=== PATIENT | male | born 1975 ===

== ENCOUNTER 2021-09-19 08:57 | Outpatient (REF) | payer OTHER, SELFPAY ==
--- NOTE | 2021-09-20 12:30 | MHC.AU.AHA ---
Adult Audiological Evaluation Date of Visit: 09/19/21 Reason for Appointment: Long-standing history of hearing loss. Patient reports his hearing loss was diagnosed in his 20s. There is extensive family history of hearing loss on the paternal side, including one family member who has cochlear implants. Patient reports that he typically relies on lip reading to help with speech understanding. His most recent hearing aids were a pair of Oticon BTEs, which are no longer working. He has been using loaner instruments from [facility] until he can get his own pair of replacement hearing aids. He is working with [employer]. Ear History: Ear Deformity: None Reported Recent Ear Drainage: None Reported Recent Ear Pain: None Reported Family History of Hearing Loss?: Yes: Paternal Side Recent Ear Infections: None Reported Ear Infections in Childhood: Both Ears History of Ear Wax Buildup: Both Ears Previous Ear Surgery: None Reported Bothersome Tinnitus/Ringing/Noises in Ears: Both Ears Ear used on the phone: Both Ears Blocked/Full Sensation in Ear(s): None Reported History of occupational noise exposure?: No History: No Medical History: Medical History: Hypertension, Blood Clot in 07/2021 Otoscopy: Right Ear: Wet partially-occluding cerumen- removed prior to testing Left Ear: Wet non-occluding cerumen Tympanometry: Tympanometry performed due to: To assess integrity of the middle ear system Right Ear: Normal Middle Ear System (Type A) Left Ear: Normal Middle Ear System (Type A) Hearing Evaluation: Transducer(s) Used: Circumaural Headphones Method: Conventional Audiometry Stimuli Used: Pure Tones Right Ear: Description of Hearing: Moderately-severe to profound sensorineural hearing loss Left Ear: Description of Hearing: Moderately-severe to profound sensorineural hearing loss Speech Recognition Threshold (SRT): Method Used: Recorded Lists Stimuli Used: Spondee Words Right Ear: Attempted, but patient was unable to repeat any words from the recording Left Ear: Attempted, but patient was unable to repeat any words from the recording Word Discrimination: Method: Monitored Live Voice Word Lists Used: W-22 Right Ear: Without visual cues: 0% at 100 dBHL, With visual cues (lip reading while listening): 64% at 100 dBHL Left Ear: Without visual cues: 0% at 100 dBHL, With visual cues (lip reading while listening): 52% at 100 dBHL Most Comfortable Level (MCL): Right Ear: 100 dBHL Left Ear: 100 dBHL Recommendations: Audiological re-evaluation in one year. See Hearing Aid Evaluation report for more information. Patient inquired if he would quality for cochlear implants. Audiologically, he is likely a candidate, though a full cochlear implant evaluation would be needed to make that determination. He would like to continue with hearings aids for now. He plans to talk to his family member who has cochlear implants to get their perspective on the experience and help him decide if he is ready for that step. If interested in the future, a referral to Dr. Denny at [facility] would be recommended. Cerumen removal performed in the right ear prior to today's testing using a lighted disposable curette. Minor bleeding noted afterwards. Use of wax softening drops, such as EarWaxMD or Debrox, is recommended to prevent cerumen occlusions in the future. Diagnosis: Primary Diagnosis: H90.3 Bilateral Sensorineural Hearing Loss Signature: Provider: Stuart Estevez, CCC-A
--- NOTE | 2021-09-20 13:00 | MHC.AU.HAS ---
Hearing Aid Evaluation Date of Visit: 09/19/21 Historical Information: Description of Hearing: Moderately-severe to profound sensorineural hearing loss bilaterally Summary: Patient was seen for audiological evaluation (see separate report for details). He is working with [facility] to obtain new hearing aids. Patient reports that he previously relied on a streamer worn around his neck to use his phone. 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 He was interested in hearing aids that were compatible with his Android phone so he would not have to wear a streamer anymore. Patient also expressed interest in rechargeable hearing aids; however, there are currently no rechargeable hearing aids available that would fit his degree of hearing loss. Hearing Aid Prescription: Based on the individual?s shared listening needs, communication environments, dexterity, desire for connectivity, and personal preferences, the following prescription for amplification has been made: Right ear: Director Customer: Phonak Model: Marilou P70-UP Battery Size: 675 Color: P5 Type of Mold: Microsonic Clear M2000 Skeleton-Style Left ear: Director Customer: Phonak Model: Marilou P70-UP Battery Size: 675 Color: P5 Type of Mold: Microsonic Clear M2000 Skeleton-Style Action Taken/Action Needed: Earmold Impressions Taken Hendricks quote will be sent to [facility]. Upon approval, the materials will be ordered. Patient will be contacted to schedule a hearing aid fitting when all materials have arrived. Primary Diagnosis: H90.3 Bilateral Sensorineural Hearing Loss Signature: Provider: Stuart Estevez, ALEXIS-A
--- NOTE | 2021-09-20 13:01 | MHC.AU.MED ---
Medical Clearance for Hearing Instrumentation Date: 09/20/21 Patient Name: EDER MOLINA Date of : 1975 Referring Provider: Freddy Holland MD We have seen your patient on 09/19/21 and have determined that they are a candidate for amplification (See accompanying report). Specifically, they would benefit from: Hearing aid use in both ears There is a statute that addresses Medical Evaluation Requirements prior to fitting a patient with a hearing aid. According to [place] statute [facility] CMR:6.03(1), (a) General. Except as provided in 265 CMR 6.03(1)(b), a certified hearing instrument dispenser shall not sell a hearing aid unless the prospective user has presented to the certified hearing instrument dispenser a written statement signed by a licensed physician that states that the patient's hearing loss has been medically evaluated and the patient may be considered a candidate for a hearing aid. The medical evaluation must have taken place within the preceding six months. Please note: Due to the [place] Statute referenced above, we cannot accept a signature other than that of a licensed physician. TITLE CLOSER and PA signatures cannot be accepted. I am in agreement with the above recommendation. There is no medical contraindication for hearing instrumentation. Physician Signature Date Physician Name (Printed)
== END 2021-09-19 08:58 | disposition home or self-care (01) ==
LOC: HO.SH 08:57
PROVIDERS: Visit Provider Internal Medicine
DX: H90.3 Sensorineural hearing loss, bilateral (principal)
CPT/HCPCS: 92557; 92567

== ENCOUNTER 2021-12-18 11:30 | Outpatient (REF) | payer SELFPAY ==
--- NOTE | 2021-12-18 13:10 | MHC.AU.HFU ---
Hearing Instrument Follow-Up- Binaural Date of Visit: 12/18/21 Right Ear: Meat Service Team Member: Phonak Model: Marilou P70-UP Serial Number: [id number] Repair Warranty: 01/22/2025 Loss and Damage Warranty: 01/22/2025 Service Plan: 11/15/2022 Battery Size: 675 Color: P5 Type of Mold: Microsonic Clear M2000 Half Shell Dispensed By: [facility] Date of Fittin11/15/2021 Left Ear: Meat Service Team Member: Phonak Model: Marilou P70-UP Serial Number: [id number] Repair Warranty: 01/22/2025 Loss and Damage Warranty: 01/22/2025 Battery Size: 675 Color: P5 Type of Mold: Microsonic Clear M2000 Half Shell Dispensed By: [facility] Date of Fittin11/15/2021 Follow-Up Summary: Richard was seen today for a hearing aid repair and 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 Visual inspection of the right device revealed the tone hook was broken and the tubing was missing. Re-tubed the right side to ensure Richard had a set of back up earmolds as needed. Fit new silicone earmolds bilaterally. Re-ran feedback test and turned off SoundRecover 2 as the patient was complaining that communication partners often sounded as if they had a lisp. Patient reported improved sound quality and overall comfortable fit of the devices. Additionally, patient requested a letter be mailed to his house to give to his employer, stating that he needs a captioned telephone for work use, due to his hearing impairment. Recommendations: Hearing instrument maintenance in 6 months, or sooner if needed. Diagnosis Code(s): H90.3 Bilateral Sensorineural Hearing Loss Signature: Student/Clinical Fellow: Yes: Anna Vazquez B.A., Stuart Unit Control Clerk I have reviewed/agreed with student/fellow documentation: Yes Provider: Stuart Morrison, [facility]
== END 2021-12-18 11:31 | disposition home or self-care (01) ==
LOC: HO.HAP 11:30
PROVIDERS: Visit Provider Internal Medicine
DX: Z13.89 Encounter for screening for other disorder (principal)

== ENCOUNTER 2022-01-25 09:29 | Outpatient (REF) | payer SELFPAY | END 2022-01-25 09:30 | disposition home or self-care (01) | LOC: HO.HAP 09:29 | PROVIDERS: Visit Provider Internal Medicine | DX: Z13.89 Encounter for screening for other disorder (principal) ==

== ENCOUNTER 2022-07-12 13:19 | Outpatient (REF) | payer SELFPAY ==
--- NOTE | 2022-07-12 14:39 | MHC.AU.HFU ---
Hearing Instrument Follow-Up- Binaural Date of Visit: 07/12/22 Right Ear: Brian Westida P70-UP SN: [id number] Color: Champagne Repair Warranty: 01/22/2025 Loss and Damage Warranty: 01/22/2025 Service Plan: 11/15/2022 Battery Size: 675 Type of Mold: Microsonic Clear M2000 Canal shell Dispensed By: [facility] Date of Fittin11/15/2021 Left Ear: Brian Westida P70-UP SN: [id number] Color: Champagne Repair Warranty: 01/22/2025 Loss and Damage Warranty: 01/22/2025 Battery Size: 675 Type of Mold: Microsonic Clear M2000 Canal shell Dispensed By: [facility] Date of Fittin11/15/2021 Follow-Up Summary: Richard reported feedback from his left hearing aid. Tubing extremely hard and pulling on mold. Left tone hook cracked. Hearing aids and ear molds were cleaned, microphones were vacuumed, and tubing was replaced. Also replaced the tone hook on the left hearing aid. A listening check demonstrated that the hearing aids are in good working order. Otoscopy clear, bilaterally. Richard noticed immediate improvement in comfort with new tubing. No feedback noted in office. Recommendations: Tubing change every 3-6 months. Richard scheduled an appointment on 11/06/2022 for a tubing change before his service agreement expires. Diagnosis Code(s): Primary Diagnosis: H90.3 Bilateral Sensorineural Hearing Loss Signature: Provider: Agus Vu, [facility]
== END 2022-07-12 13:20 | disposition home or self-care (01) ==
LOC: HO.HAP 13:19
PROVIDERS: Visit Provider Internal Medicine
DX: Z13.89 Encounter for screening for other disorder (principal)

== ENCOUNTER 2022-11-04 09:29 | Outpatient (REF) | payer SELFPAY ==
--- NOTE | 2022-11-04 10:47 | MHC.AU.HFU ---
Hearing Instrument Follow-Up- Binaural Date of Visit: 11/04/22 Right Ear: Scenic Arts Supervisor: Phonak Marilou P70-UP SN: [id number] Color: Champagne Repair Warranty: 01/22/2025 Loss and Damage Warranty: 01/22/2025 Service Plan: 11/15/2022 Battery Size: 675 Color: P5 Tubing: Tube Lock Type of Mold: Microsonic Clear M2000 Canal shell Dispensed By: [facility] Date of Fittin11/15/2021 Left Ear: Scenic Arts Supervisor: Phonak Marilou P70-UP SN: [id number] Color: Champagne Repair Warranty: 01/22/2025 Loss and Damage Warranty: 01/22/2025 Service Plan: 11/15/2022 Battery Size: 675 Color: P5 Tubing: Tube Lock Type of Mold: Microsonic Clear M2000 Canal shell Dispensed By: [facility] Date of Fittin11/15/2021 Follow-Up Summary: Patient needs tubing changed and reports the left aid is softer compared to the right. Cleaned the aids. microphones, contacts and changed tubing. Both earhooks were loose and replaced both. Increased the overall gain of the left aid 2 steps and then the right one click with patient reporting more balanced volume between the aids. Patient's service contract is expiring 11/15/2022. Provided the list of service fees. Since patient requires regular tubing changes, advised the extended 3 year services agreement for $499. Patient will consider. Also advise audiologic re-evaluation and patient will contact PCP to have order faxed. Recommendations: Hearing instrument follow-up or maintenance as needed. Please contact our clinic with any questions or concerns. Diagnosis Code(s):Primary Diagnosis: H90.3 Bilateral Sensorineural Hearing Loss Signature: Provider: Agus Thrasher, [facility]
== END 2022-11-04 09:30 | disposition home or self-care (01) ==
LOC: HO.HAP 09:29
PROVIDERS: Visit Provider Internal Medicine
DX: Z13.89 Encounter for screening for other disorder (principal)

== ENCOUNTER 2022-11-15 12:16 | Outpatient (REF) | payer SELFPAY | END 2022-11-15 12:17 | disposition home or self-care (01) | LOC: HO.HAP 12:16 | PROVIDERS: Visit Provider Internal Medicine | DX: Z46.1 Encounter for fitting and adjustment of hearing aid (principal); H90.3 Sensorineural hearing loss, bilateral | CPT/HCPCS: V5299 ==

== ENCOUNTER 2023-01-14 11:36 | Outpatient (REF) | payer SELFPAY ==
--- NOTE | 2023-01-14 13:03 | MHC.AU.HFU ---
Hearing Instrument Follow-Up- Binaural Date of Visit: 01/14/23 Right Ear: Phonak Marilou P70-UP SN: [id number] Color: Champagne Repair Warranty: 01/22/2025 Loss and Damage Warranty: 01/22/2025 Service Plan: 11/15/2025 Battery Size: 675 Type of Mold: Microsonic Clear M2000 Canal shell Dispensed By: [facility] Date of Fittin11/15/2021 Left Ear: Phonak Marilou P70-UP SN: [id number] Color: Champagne Repair Warranty: 01/22/2025 Loss and Damage Warranty: 01/22/2025 Service Plan: 11/15/2025 Battery Size: 675 Type of Mold: Microsonic Clear M2000 Canal shell Dispensed By: [facility] Date of Fittin11/15/2021 Follow-Up Summary: Richard Darden is here today for a tubing change. Right and left ear mold tubing have hardened and he notes some feedback due to this. Otoscopy reveals clear ear canals bilaterally. Visual inspection of the hearing aids confirms hardened tubing and some moisture in the tone hooks. I re-tubed the ear molds and replaced the tone hooks bilaterally. Listening check confirms clear sound. I measured the tubing to the patient's ear. Good fit, no feedback. Richard reported good sound bilaterally. He will contact our clinic for hearing aid maintenance when he notes the ear mold tubing has hardened or if concerns arise. Diagnosis Code(s): Primary Diagnosis: H90.3 Bilateral Sensorineural Hearing Loss Signature: Provider: Stuart Macias, [facility]
== END 2023-01-14 11:37 | disposition home or self-care (01) ==
LOC: HO.HAP 11:36
PROVIDERS: Visit Provider Internal Medicine
DX: Z13.89 Encounter for screening for other disorder (principal)

== ENCOUNTER 2023-04-25 14:08 | Outpatient (REF) | payer SELFPAY | END 2023-04-25 14:09 | disposition home or self-care (01) | LOC: HO.HAP 14:08 | PROVIDERS: Visit Provider Internal Medicine | DX: Z13.89 Encounter for screening for other disorder (principal) ==

== ENCOUNTER 2023-12-12 14:59 | Outpatient (REF) | payer SELFPAY | END 2023-12-12 15:00 | disposition home or self-care (01) | LOC: HO.HAP 14:59 | PROVIDERS: Visit Provider Internal Medicine | DX: Z13.89 Encounter for screening for other disorder (principal) ==

== ENCOUNTER 2024-01-23 14:58 | Outpatient (REF) | payer SELFPAY | END 2024-01-23 14:59 | disposition home or self-care (01) | LOC: HO.HAP 14:58 | PROVIDERS: Visit Provider Internal Medicine | DX: Z13.89 Encounter for screening for other disorder (principal) ==

== ENCOUNTER 2024-06-04 14:21 | Outpatient (REF) | payer SELFPAY | END 2024-06-04 14:22 | disposition home or self-care (01) | LOC: HO.HAP 14:21 | PROVIDERS: Visit Provider Internal Medicine | DX: Z46.1 Encounter for fitting and adjustment of hearing aid (principal); H90.3 Sensorineural hearing loss, bilateral | CPT/HCPCS: V5264 ==

== ENCOUNTER 2024-10-15 13:22 | Outpatient (REF) | payer SELFPAY ==
--- OUTSIDE RECORDS SUMMARY | 2024-10-15 13:52 | XMS_ITS | Clinical Summary ---
Author Organization [facility] Address [address] [place] [address] Phone Care Team Providers Care Scenario Writer Name Role Phone Freddy Holland MD Primary Care Provider + [phone] Allergies No known active allergies Medications lisinopril 40 MG tablet Take 40 mg by mouth 1 (one) time each day Active hydroCHLOROthia zide 25 MG tablet Take 25 mg by mouth 1 (one) time each day Active allopurinol (ZYLOPRIM) 100 MG tablet Take 100 mg by mouth in the morning and 100 mg in the evening. Active pantoprazole (PROTONIX) 40 MG EC tablet Take 40 mg by mouth 1 (one) time each day before breakfast Do not crush, chew, or split. Active metoprolol succinate XL (TOPROL XL) 25 MG 24 hr tablet Take 25 mg by mouth 1 (one) time each day Do not crush or chew. Active apixaban (Eliquis) 2.5 MG tablet Take 2.5 mg by mouth in the morning and 2.5 mg in the evening. Active Loratadine (Claritin) 10 MG capsule Take 1 tablet by mouth 1 (one) time each day Active fluticasone (FLONASE) 50 MCG/ACT nasal spray Administer 1 spray into each nostril 1 (one) time each day Active Elastic Bandages & Supports (JOBST FOR MEN KNEE HIGH/LG) misc Active Cholecalciferol (Vitamin D) 25 MCG (1000 UT) tablet Take by mouth Active metFORMIN (FORTAMET) 500 MG 24 hr tablet Take 500 mg by mouth 1 (one) time each day with dinner Do not crush, chew, or split. Active zolpidem (Ambien) 10 MG tablet Take 10 mg by mouth at night if needed for sleep Active amLODIPine (NORVASC) 10 MG tablet Take 1 tablet (10 mg total) by mouth 1 (one) time each day 90 tablet 3 4 Active Zoloft 25 MG tablet Take 25 mg by mouth 1 (one) time each day 4 Active Active Problems Problem Noted Date Diagnosed Date Deep venous thrombosis 10/19/2023 Hypertension 10/19/2023 Adrenal adenoma <Unspecified side> 10/19/2023 Family History Medical History Relation Comments Cancer Father Relation Status Comments Father Social History Tobacco Use Types Packs/Day Years Used Date Smoking Tobacco: Never Smokeless Tobacco: Never Tobacco Cessation:Counseling Given: Not Answered Alcohol Use Standard Drinks/Week Comments Yes 0 (1 standard drink = 0.6 oz pur e alcohol) Sex and Gender Information Value Date Recorded Sex Assigned at Not on file Legal Sex Male 10:10 AM EDT Gender Identity Not on file Sexual Orientation Not on file Last Filed Vital Signs Vital Sign Reading Time Taken Comments Blood Pressure 143/93 03/18/2024 8:08 AM EDT Pulse 80 03/18/2024 8:08 AM EDT Temperature - - Respiratory Rate - - Oxygen Saturation 98% 03/18/2024 8:08 AM EDT Inhaled Oxygen Concentration - - Weight 142 kg (314 lb) 03/18/2024 8:08 AM EDT Height 190.5 cm (6' 3 ) 03/18/2024 8:08 AM EDT Body Mass Index 39.25 03/18/2024 8:08 AM EDT Plan of Treatment Upcoming Encounters Date Type Department Care Team (Late st Contact Info) Description 03/17/2025 8:20 AM EDT Office Visit [facility] [address] [address] Jw Pearson MD [address] [address] Health Maintenance Due Date Last Done Comments Pneumococcal Vaccine: Pediat rics (0 to 5 Years) and At-Risk Patients (6 to 64 Years) (1 of 2 - PCV) 1983 Hepatitis B Vaccine (1 of 3 - 19+ 3-dose series) 04/19 Influenza Vaccine (#1) 2024 Insurance [facility] Care Teams Scenario Writer Relationship Specialty Start Date End Date Freddy Holland MD [address] [place] [address] PCP - General Internal Medicine 06/18/23
--- OUTSIDE RECORDS SUMMARY | 2024-10-15 13:52 | XMS_ITS | Clinical Summary ---
Author Organization [facility] Address [address] [id number] Care Team Providers Care Oil Recovery Operator Name Role Phone Freddy Holland MD Primary Care Provider + [phone] Allergies No known active allergies Medications Medication Sig Dispensed Refills Start Date End Date Status allopurinol (ZYLOPRIM) 100 MG tablet Take 200 mg by mouth daily. 0 07/29/2021 Active Eliquis 5 MG TABS tablet Take 5 mg by mouth 2 (two) times a day. 0 09/18/2021 Active citalopram (CeleXA) 40 MG tablet Take 40 mg by mouth every night at bedtime. 0 09/18/2021 Active desvenlafaxine (PRISTIQ) 50 MG 24 hr tablet 0 10/10/2021 Active lisinopril (PRINIVIL,ZESTRIL) tablet 40 mg Take 40 mg by mouth daily. 0 09/21/2021 Active pantoprazole (PROTONIX) 40 MG tablet Take 40 mg by mouth daily. 0 07/25/2021 Active topiramate (TOPAMAX) 200 MG tablet Take 200 mg by mouth every night at bedtime. 0 08/16/2021 Active Active Problems Problem Noted Date Diagnosed Date Acute deep vein thrombosis ( DVT) of tibial vein of left lower extremity 10/16/2021 Family History Medical History Relation Name Comments Cancer Father Cancer Maternal Grandmother Cancer Paternal Grandfather Relation Name Status Comments Father Maternal Grandmother Paternal Grandfather Social History Tobacco Use Types Packs/Day Years Used Date Smoking Tobacco: Never Smokeless Tobacco: Never Alcohol Use Standard Drinks/Week Comments Never 0 (1 standard drink = 0.6 oz pur e alcohol) Sex and Gender Information Value Date Recorded Sex Assigned at Not on file Gender Identity Not on file Sexual Orientation Not on file Last Filed Vital Signs Vital Sign Reading Time Taken Comments Blood Pressure 152/96 10/16/2021 11:44 AM EST Pulse 92 10/16/2021 11:44 AM EST Temperature 36.2 ??C (97.2 ??F) 10/16/2021 1 1:44 AM EST Respiratory Rate - - Oxygen Saturation 96% 10/16/2021 11: 44 AM EST Inhaled Oxygen Concentration - - Weight 156.6 kg (345 lb 3.2 oz) 022 11:44 AM EST Height 190.5 cm (6' 3 ) 10/16/2021 11:4 4 AM EST Body Mass Index 43.15 10/16/2021 11:44 AM EST Plan of Treatment Health Maintenance Due Date Last Done Comments Hepatitis B Vaccines (1 of 3 - 3-dose series) 1975 Hepatitis C Screening 1975 COVID-19 Vaccine (#1) 1975 Depression Screening 1989 Preventative Health Evaluation 1995 DTap / Tdap / Td (1 - Tdap) 1996 Colon Cancer Screening (Colonoscopy) 2022 Influenza Vaccine (#1) 2024 Pneumococcal Vaccine Aged Out No long er eligible based on patient's age to complete this topic RSV Ped < 20 months Aged Out No longe r eligible based on patient's age to complete this topic Insurance Payer Benefit Plan / Group Subscriber ID Effective Dates Phone Address [facility] [id number] [address] [place] [address] HMO Care Teams Oil Recovery Operator Relationship Specialty Start Date End Date Freddy Holland MD PCP - General Internal Medicine 11/3/17
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
--- OUTSIDE RECORDS SUMMARY | 2024-10-15 13:52 | XMS_ITS | Data Portability ---
Author Organization [facility], [address] Address [address] [place] [address] Care Team Providers Care Search Strategist Name Role Phone RAINA NIEVES Adult Basic Education Manager [phone] Assessment Encounter Date Assessment Date Assessment LastModified by Organization Details LastModified Time 08/29/2024 08/29/2024 Patient was evaluated by the Physician Production Corrugator using AV technology. This type of exam does not replace a need for an in-person evaluation if symptoms worsen or do not improve after 24-48 hours. Not available 08/29/2024 10:47:21 Plan of Treatment Reminders Order Date Submit Date Provider Last Modified By Organization Details Last Modified Time Details Appointments None recorded. Lab None recorded. Referral None recorded. Procedures None recorded. Surgeries None recorded. Imaging XR, foot, 3 or more view 2023 024 [facility], [address] [place] [address], [address], 4 18:10:31 Medication Orders clotrimazol e-betametha sone 1 %-0.05 % topical cream 2023 024 [id number], [address] [place], [address], 4 10:34:06 amoxicillin 875 mg-potassiu m clavulanate 125 mg tablet 2023 024 [id number], [address] [place], [address], 10:33:59 Patient TargetsNo targets recorded. Patient Instructions Encounter Date Encounter Id Patient Instructions Last Modified By Organization Details Last Modified Time 10/04/2023 [id number] hives: care instructions quinton Not available 10/04/2023 16:47:26 - Daily cleansin g of intertriginous skin with a mild cleanser followed by drying of affected area with a astronomy department chair on a cool setting - Aeration of affected area when feasible - Daily application of drying powders - Use of absorbent material or clothing, such as cotton or macedo wool, to separate skin in folds [facility] Not available 10/04/2023 16:47:42 01/14/2024 [id number] learning about rice (rest, ice, compression, and elevation) [email or web address] Not available 01/14/2024 17:16:41 Recommend rest, icing intermittently Physical Therapy and follow up with Podiatry. [email or web address] Not available 01/14/2024 17:46:17 05/07/2024 [id number] Acute Sinusitis: Care Instructions Not available 05/07/2024 16:53:15 08/29/2024 [id number] upper respirator y infection (cold): care instructions Not available 08/29/2024 10:50:54 Reason for Referral None Reported. Results Created Date Observation Date Name Description Value Unit Range Abnormal Flag Note LastModifiedBy Organization Detail LastModifiedTime 01/14/20 24 01/14/2024 XR, foot, 3 or more view No observ ation record ed. [email or web address] [facility] [address] [place], [address], 01/14/2024 19:27:55 Result Notes None recorded. Problems Name Problem SNOMED Code Status Onset Date Resolution Date Notes Provider Name and Address Organization Details Recorded Time Hypertensive disorder 00387628 Active Suellen cheung PA - [facility] 16:12:30 Diabetes mellitus 13924523 Active Suellen cheung PA - [facility] 16:12:38 Anxiety 94850211 Active Suellen cheung PA - [facility] 4 16:12:47 Problem Notes None recorded. Procedures Surgical History Date Name Laterality Status Provider Name and Address Organization Details Recorded Time 4 Virtual Visit completed Cinthia BECKWITH - [facility] 08/29/2024 10:32:31 Imaging Results Imaging Date Name Status LastModified by Liset ation Details LastModified Time 01/14/2024 XR, foot, 3 or more view completed [email or web address] [facility] [address] [facility] [place], [address], 01/14/2024 19:27:55 Procedure Notes None recorded. Medical Equipment None Reported. Allergies No known drug allergies Medications Name Sig Start Date Stop Date Status Note LastModified by Organization Details LastModified Time clotrimazol e-betametha sone 1 %-0.05 % topical cream APPLY TO THE AFFECTED AND SURROUNDI NG AREAS OF SKIN BY TOPICAL ROUTE 2 TIMES PER DAY IN THE MORNING AND EVENING FOR 2 WEEKS 08/29 completed Not Available Not Available Not Available amoxicillin 875 mg-potassiu m clavulanate 125 mg tablet Take 1 tablet every 12 hours by oral route for 10 days. 08/29 completed Not Available Not Available Not Available Zoloft active Not Available Not Availa ble Not Available Eliquis 2.5 mg tablet Take 1 tablet twice a day by oral route. active Not Available Not Available No t Available Vitals Date Recorded Body height Body mass index (BMI) Body weight Oxygen saturation Oxygen saturation in Arterial blood by Pulse oximetry Heart rate Respiratory rate Body temperature Systolic blood pressure Diastolic blood pressure Provider Name and Address Organization Details Last Updated DateTime 4 190.5 cm 38.7 kg/m2 422608. 63 g 98 % 98 % 78 /min 18 /min 98.8 [degF] 167 mm[Hg] 88 mm[Hg] Suellen BECKWITH - [facility] 4 16:15:47 Date Recorded Body height Body mass index (BMI) Body weight Oxygen saturation Oxygen saturation in Arterial blood by Pulse oximetry Heart rate Respiratory rate Body temperature Systolic blood pressure Diastolic blood pressure Provider Name and Address Organization Details Last Updated DateTime 4 190.5 cm 39.4 kg/m2 464469. 6 g 99 % 99 % 84 /min 18 /min 97.5 [degF] 130 mm[Hg] 86 mm[Hg] Roberta Wilkins PA - [facility] 4 17:10:43 Date Recorded Body height Body mass index (BMI) Body weight Pain severity - 0-10 verbal numeric rating [Score] - Reported Oxygen saturation Oxygen saturation in Arterial blood by Pulse oximetry Heart rate Respiratory rate Body temperature Systolic blood pressure Diastolic blood pressure Provider Name and Address Organization Details Last Updated DateTime 4 190.5 cm 39.4 kg/m2 435267. 6 g 3 98 % 98 % 105 /min 18 /min 98.7 [degF] 142 mm[Hg] 98 mm[Hg] Seullen Espinoza PA - [facility] 4 16:49:32 Date Recorded Body height Body mass index (BMI) Body weight Provider Name and Address Organization Details Last Updated DateTime 08/29/2024 190.5 cm 39.4 kg/m2 929711.6 g Cinthia Ale PA - [facility] 08/29/2024 10:33:52 Social History Question Answer Notes LastModified by Organizat ion Details LastModified Time Tobacco Smoking Status Never Smoker Suellen cheung PA - [facility] 10/04/2023 16:13:33 What Is Your Level Of Alcohol Consumption? None [email or web address] Information not available 10/04/2023 Are You Currently Employed? No Information not available 08/29/2024 Have You Had A Flu Shot This Season? Yes [email or web address] Information not available 10/04/2023 What Is Your Water Source? City Information not available 08/29/2024 What Is Your Heat Source? Electric Information not available 08/29/2024 Have You Had Direct Contact, Or Contact During Intimacy, With Monkeypox Rash, Scabs, Or Body Fluids From A Person With Monkeypox? No [email or web address] Information not available 01/14/2024 What Was The Date Of Your Most Recent Tobacco Screening? 05/07/2024 [email or web address] Information not available 05/07/2024 What Is Your Relationship Status? Information not available 08/29/2024 Are You Passively Exposed To Smoke? No Information no t available 08/29/2024 Do You Use Any Illicit Or Recreational Drugs? No Information not available 10/04/2023 Have You Recently Traveled Abroad? No [email or web address] Information not available 10/04/2023 Sex: Unknown Functional Status None recorded. Mental Status None recorded. Family History Nothing Reported. Medical History No medical history recorded. Past Encounters Encounter ID Performer Location Encounter Start Date Encounter Closed Date Diagnosis/Indication Diagnosis SNOMED-CT Code Diagnosis ICD10 Code Diagnosis Note [id number] [address] [facility], [place] [address] 07/17/2021 08:03:29 07/17/2021 09:03:28 [id number] [address] [place] [address] 10/25/2016 08:10:10 10/25/2016 09:09:58 [id number] [address] [place] [address] 11/04/2016 14:20:19 11/04/2016 15:47:57 [id number] [address] [place] [address] 11/13/2016 14:19:38 11/13/2016 16:09:06 [id number] [address] [place] [address] 12/29/2017 08:18:27 12/29/2017 09:25:12 [id number] [address] [facility], [place] [address] 12/23/2018 08:17:50 12/23/2018 08:56:59 [id number] [address] [facility] [place] [address] 11/29/2018 16:36:13 11/29/2018 17:14:28 [id number] [address] [place] [address] 06/30/2018 08:21:01 06/30/2018 10:27:37 [id number] Sha Tapia, EDU [address] [facility] [address] [facility] [place] [id number] 10/04/2023 15:58:09 10/04/2023 16:49:55 Candidiasis of skin 24249134 B37.2 What are ringworm, athlete's foot, and jock itch?These are all skin infections caused by a fungus. These types of fungal infections are also called tinea. Some people call these fungal infections ringworm. This is because they often cause a ring-shape d, red, itchy rash on the skin. But a ring-shape d rash is not always there. Depending on where the infection is, it can look different: ? People with athlete's foot might instead have moist, raw skin between their toes, or flaking skin on the bottoms of their feet.? People with jock itch often just have a rash on their groin. It usually starts in the fold where the thigh meets the groin area.? Sometimes , especially in children, the fungus can infect the scalp. On the scalp, the infection can look like a bald spot or a round flaky patch of skin. How did I get a fungal infection? You can catch fungal infections through skin-to-sk in contact with a person who is infected. You can also catch them from an infected dog or cat. You can also get the infections from places where the fungus might be, such as:? A shower stall? A locker room floor? The area near a pool If you have a fungal infection on 1 part of your body, you can also spread it to other parts. For instance, a fungal infection on your feet could spread to your groin. How are fungal infections treated? e treatment for a fungal infection depends on which body part is affected:? If you have a fungal infection on your scalp, you must take pills to kill the fungus. Treatment for scalp infections usually lasts 1 to 3 months.? If you have a fungal infection on your feet, groin, or another body part, most of the time, you will not need pills. Instead, you can use a special gel, cream, lotion, or powder to kill the fungus. Treatment with these products lasts 2 to 4 weeks.? If you have a fungal infection on your groin and on your feet, you must treat both infections at the same time. If you don't, the infection on your feet can spread to your groin again. What problems should I watch for?If you are being treated for a fungal infection, call your doctor or nurse for advice if:? Your fungal infection spreads.? You have any of the following symptoms:?Fever of 100.4? ? ?F (38? ? ?C) or higher?Chills?Swelling, redness, or warmth around the infected area?Pain when touching the area? Your fungal infection doesn't go away after treatment. How do I keep from getting a fungal infection again?If someone in your home has had a fungal infection on their scalp:? Get rid of any [place], brushes, barrettes, or other hair products that could have the fungus on them.? Make sure that a doctor or nurse checks everyone in the house for a fungal infection on the scalp. The doctor or nurse might also suggest that everyone else in the house use an antifungal shampoo for a few weeks.? If the fungal infection might have come from a pet, have the pet checked by a vet. Some other general tips to prevent fungal infections :? Do not share unwashed clothes, sports gear, or towels with other people.? Always wear slippers or sandals when at the gym, pool, or other public areas. This includes public showers.? Change your socks and underwear at least once a day.? Keep your skin clean and dry. Always dry yourself well after swimming or showering. [id number] TANG SALAZAR [address] [facility] [address] [place] [address] 01/14/2024 17:01:01 01/14/2024 17:51:10 Pain in right foot 3812392111 83501 M79.671 Right Achi lles tendinitis 5576767649 71630 M76.61 Calcaneal spur 22857583 M77.31 [id number] TANG Mcguire [address] [facility] [address] [facility] [place] [address] 05/07/2024 16:40:23 05/07/2024 16:54:17 Acute sinusitis 59045858 J01.90 Based on your presentati on and exam, you are being diagnosed with Sinusitis. Rhinosinus itis is most often viral and will resolve on its own in 7-10 days. Symptoms that last longer than 2 weeks an antibiotic could be considered . Based on your presentati on, an antibiotic was written. The following are my recommenda tions to help your symptoms and to allow your condition to improve: 1. Drink plenty of fluids while you are ill- stay hydrated 2. Rest - don't overexert yourself - this includes sports and any gym routines. 3. I suggest taking an antihistam ine - like Claritin, Zyrtec, or Benedryl 4. If you take OTC cold medication I would recommend Nessa-Selze r Cold/Cough . 5. Mucinex with a lot of water is ok - if you are having trouble clearing your nasal passages of mucous. However, if you start to cough then discontinu e - this can increase coughing due to a watery post nasal drip. 6. Steroid Nasal Bunola like Flonase or Nasonex is recommende d. Since an antibiotic was prescribed you need to complete the full course - this is important so you don't develop any antibiotic resistance to future infections . I advise taking a Probiotic like Florastor since you are on an antibiotic - this will help you re-coloniz e your body with the good bacteria. Typically, it will take 6 months for you to restore your normal body abbey after an antibiotic . Don't hesitate to be seen again if you develop: 1. Fever > 100.5 2. Worsening Headache 3. Stiff Neck 4. Worsening Cough or Shortness of breath 5. Visual Changes. The antibiotic should start to work in 4-5 days. You may not notice immediate response. Thank you for using [employer] today, please feel free to contact our office if you have any questions or concerns. [id number] TANG Mcguire [address] [place] [address] 08/29/2024 10:31:10 08/29/2024 10:51:43 Upper respiratory infection 47981728 J06.9 Patient presented with symptoms of upper respirator y infection. Advised to drink plenty of fluids, run a cool-mist humidifier in room at night, gargle salt water for sore throat, and get plenty of rest. Patient should avoid over-exert ion and reduce exposure to irritants such as smoke, cold, dry air, and dust.Treat ment currently involves symptomati c relief. Nasal sprays like nasonex and flonase (or generic) as well as neti pot to help clear sinuses Patient may take acetaminop hen or ibuprofen as directed to reduce fever and body aches.Anti histamine and decongesta nt usage was discussed and recommenda tions made.Jose nt understood these instructio ns and will follow up in the office in 10 days to 2 weeks if symptoms not improving. ER if any shortness of breath/ector st pain or worsening. Thank you for using [facility] today, please feel free to contact our office if you have any questions or concerns. Health Concerns Section Related Observation LastModified by Organization Detai ls LastModified Time None Recorded Concern Status LastModified by Organization Details LastModified Time None Recorded Advance Directives Directive None Recorded Payers Encounter Date Sequence Insurance Name Policy Number Policy Chavis Covered Member ID Chavis Member ID Guarantor Name 07/17/2021 1 [facility] [id number] 5 Richard Husseint [id number] Richard Darden 10/04/2023 1 [facility] [id number] 5 Richard Adelso [id number] Richard Adelso 01/14/2024 1 [facility] [id number] 5 Richard Adelso [id number] Richard Adelso 05/07/2024 1 [facility] [id number] 5 Richard Adelso [id number] Richard Adelso 08/29/2024 1 [facility] [id number] 5 Richard Adelso [id number] Richard Darden Notes Date Note Type Note Provider Name and Address Organization Details Recorded Time 4 text/html UC Rash/Skin LesionReported bypatient.source of patient informationInformation obtained from patient; Patient arrived at Urgent Care ambulatory; 48 year old male comes in with rash in his groin area x 4 days. Location:abdomen; groin; genitalia; thighs Quality:itchy;red;spreading Severity:moderate Duration:4 days Context:other exposure; no new detergent or skin product; no recent change in medication; no exposure to hair dye; no expsoure to new clothes/jewelry; no recent travel; no recent illness; no pets/animals in home; not affiliated with chemicals/pesticides Alleviating Factors:nothing gives relief Associated Symptoms:no fever; no fatigue Treatment History:oral antifungals with no improvement Sha Tapia NP [address] [place], [address], PA [employer] [facility] 10/04/2023 16:49:58 4 text/html Foot/Ankle UCReported bypatient.Notes:48 y.o male pt presents with intermittent rigth heel pain that started a few weeks ago. Pt denies any specific injury. He has a slight elevated area to his heel. He denies any recent trauma or injury. TANG SALAZAR [address] [place], [address], PA [employer] [facility] 01/14/2024 19:03:41 4 text/html 49 y/o male here with R sided facial pain for 3 days, now with upper teeth pain. Has happened in the past when he has a sinus infection TANG Mcguire [address] [place], [address], PA [employer] [facility] 05/07/2024 16:54:33 4 text/html Verified the Patient's Name and at the start of visit.[employer] Technology was used and functioning properly.Patient (and Guardian) - verbally understands limitations of a medical exam using A/V Technology - understands alternative treatment would be to visit an on-site medical facility.The patient did confirm they are physically located in the state that I hold a valid medical license. 49 y/o male for virtual visit for cough, congestion for 10 days. Was treated for bronchitis last week, prescribed albuterol, nasal spray, benzonatate caps. Having some SOB and chest tightness that improves with albuterol. Not taking anything OTC.No fevers, chills, body aches. TANG Mcguire [address] [place], [address], PA - [facility] 08/29/2024 10:53:19
--- OUTSIDE RECORDS SUMMARY | 2024-10-15 13:53 | XMS_ITS | Encounter Summary ---
Author Organization [facility] [place] [address] Care Team Providers Care Internet Network Specialist Name Role Phone Freddy Holland MD Primary Care Provider [phone] Reason for Referral * Hospital - Outpatient (Routine) - Closed Specialty Diagnoses / Procedures Referred By José Manuel jackson Referred To Contact Gastroenterology Diagnoses Colon cancer screening Procedures COLONOSCOPY Anesthesia - MAC; [facility] END[facility]COPY Janusz Pate MD [address] [address] [facility] Endoscopy [address] [place] [address] Referral ID Status Reason Start Date Expiration Date Visits Re quested Visits Authorized [id number] Closed 10/07/2024 12/06/2024 1 1 Reason for Visit * Auth/Cert (Routine) Specialty Diagnoses / Procedures Referred By José Manuel jackson Referred To Contact Diagnoses Encounter for screening for malignant neoplasm of colon Procedures COLONOSCOPY [facility] [place] [address] [facility] Endoscopy [address] [place] [address] Referral ID Status Reason Start Date Expiration Date Visits Re quested Visits Authorized [id number] 1 1 Encounter Details Date Type Department Care Team (Latest Contact Info) Description 10/07/2024 11:17 AM EST - 10/07/2024 11:59 PM EST Hospital Encounter [facility] Endoscopy [address] [place] [address] Janusz Pate MD 229 [facility] [address] [place] [address] Parrish Morris, JESÚS 114 [facility] [address] [place] [address] Colon cancer screening Discharge Disposition: Home or Self Care Social History Tobacco Use Types Packs/Day Years Used Date Smoking Tobacco: Never Smokeless Tobacco: Never Tobacco Cessation:Counseling Given: Not Answered Alcohol Use Standard Drinks/Week Comments Not Currently [...] on file documented as of this encounter Last Filed Vital Signs Vital Sign Reading Time Taken Comments Blood Pressure 127/89 10/07/2024 1:32 PM EST Pulse 94 10/07/2024 1:32 PM EST Temperature 35.9 ??C (96.7 ??F) 10/07/2024 12:[address] Respiratory Rate 16 10/07/2024 1:32 PM EST Oxygen Saturation 96% 10/07/2024 1:32 PM EST Inhaled Oxygen Concentration - - Weight 143 kg (315 lb) 10/07/2024 12:49 PM EST Height 190.5 cm (6' 3 ) 10/07/2024 12:49 PM EST Body Mass Index 39.37 10/07/2024 12:49 PM EST documented in this encounter Discharge Instructions * Attachments The following attachments cannot be sent through Care Everywhere. * Colon Polyps (Turkish) documented in this encounter Medications at Time of Discharge Medication Sig Dispensed Refills Start Date End Date allopurinoL (ZYLOPRIM) 100 mg tablet Take 2 tablets (200 mg total) by mouth 1 (one) time each day. amLODIPine (NORVASC) 10 mg tablet Take 1 tablet (10 mg total) by mouth 1 (one) time each day. Eliquis 2.5 mg tablet Take 1 tablet (2.5 mg total) by mouth 2 (two) times a day. sertraline (ZOLOFT) 100 mg tablet Take 2 tablets (200 mg total) by mouth. at bedtime 10/02/2024 zolpidem (AMBIEN) 10 mg tablet Take 1 tablet (10 mg total) by mouth at bedtime as needed. at bedtime documented as of this encounter Discharge Disposition Disposition Code Departure Means Destination Home or Self Care documented in this encounter Progress Notes * Mariann Ohara RN - 10/07/2024 1:29 PM EST Problem: Cognitive:Periop Procedure - Minor Goal: Knowledge of disease or condition will improve Outcome: Adequate for Discharge Problem: Sensory:Periop Procedure - Minor Goal: Demonstrates/reports adequate pain control Outcome: Adequate for Discharge Pt meets criteria for d/c * Jody Pearl RN - 10/07/2024 12:15 PM EST Problem: Cognitive:Periop Procedure - Minor Goal: Knowledge of disease or condition will improve Outcome: Progressing Problem: Sensory:Periop Procedure - Minor Goal: Demonstrates/reports adequate pain control Outcome: Progressing PT VERBALIZES UNDERSTANDING OF D/C INSTRUCTIONS CALL VICENTE @ BEDSIDE FALL RISK REVIEWED documented in this encounter H&P Notes * Janusz Pate MD - 10/07/2024 12:15 PM EST Pre-Op Diagnosis: Screening Proposed Procedure: colon Performing Surgeon/MD/Endoscopist: Janusz Pate MD Medical/History: Past Medical History: Diagnosis Date Anxiety and depression DX:Anxiety and depression DVT (deep venous thrombosis) ([facility]) DX:DVT (deep venous thrombosis) ([facility]) [place] DX:[place]) Obesity DX:Obesity HARLEEN (obstructive sleep apnea) DX:HARLEEN (obstructive sleep apnea) Restrictive lung disease DX:Restrictive lung disease Past Surgical History: Procedure Laterality Date CHOLECYSTECTOMY PROCEDURE: HISTORICAL CHOLECYSTECTOMY OTHER SURGICAL HISTORY PROCEDURE: ESOPHAGEAL MASS BIOPSY SPCMN PATHOLOGY EXAM OTHER SURGICAL HISTORY PROCEDURE: HISTORY OTHER; COMMENT: Surgical intervention for scoliosis Medications/Allergies: Prior to Admission medications Medication Sig Start Date End Date Taking? Authorizing Provider allopurinoL (ZYLOPRIM) 100 mg tablet Take 2 tablets (200 mg total) by mouth 1 (one) time each day.Yes Historical Provider, amLODIPine (NORVASC) 10 mg tablet Take 1 tablet (10 mg total) by mouth 1 (one) time each day. Yes Historical Provider, sertraline (ZOLOFT) 100 mg tablet Take 2 tablets (200 mg total) by mouth. at bedtime 10/02/24 Yes Historical Provider, zolpidem (AMBIEN) 10 mg tablet Take 1 tablet (10 mg total) by mouth at bedtime as needed. at bedtime Yes Historical Provider, Eliquis 2.5 mg tablet Take 1 tablet (2.5 mg total) by mouth 2 (two) times a day. Historical Provider, Patient Age:49 y.o. Vitals: There were no vitals filed for this visit. Physical Exam: Mental Status: Clear HEENT: WNL Heart: WNL Lungs: WNL Abdomen: WNL Extremities: WNL Neuro: WNL Labs: Imaging: Diagnosis/Plan: Colonoscopy documented in this encounter Procedure Notes * Mariann Ohara RN - 10/07/2024 1:30 PM EST Pt tolerated fluids to drink and meets discharge criteria. Mom at pt bedside documented in this encounter Plan of Treatment Not on file documented as of this encounter Procedures Procedure Name Priority Date/Time Associated Diagnosis Comments COLONOSCOPY Routine 10/07/2024 1:11 PM EST Colon cancer screening TISSUE EXAM Routine 10/07/2024 1:09 PM EST Colon cancer screening documented in this encounter Results * COLONOSCOPY Anesthesia - MAC; [facility] END[facility] (10/07/2024 1:11 PM EST) Anatomical Region Laterality Modality Endoscopy 10/07/2024 12:5 1 PM EST Impressions 10/07/2024 1:15 PM EST - One 7 mm polyp in the mid rectum, removed with a ? cold snare. Resected and retrieved. ? - The examination was otherwise normal on direct and ? retroflexion views. Recommendation: ?- Await pathology results. ? - Repeat colonoscopy in 3 years for surveillance. Narrative 10/07/2024 1:15 PM EST [facility] GI Patient Name: Richard Darden Procedure Date: 10/07/2024 12:51 PM Date of : 1975 Age: 49 Room: ROOM 16 Gender: Male Note Status: Finalized Attending MD: Janusz Pate MD, Procedure Date No Time: 10/07/2024 Procedure: ? Colonoscopy Indications: ? Colon cancer screening in patient at increased risk: ? Family history of 1st-degree relative with colon ? polyps before age 60 years, Screening in patient at ? increased risk: Family history of 1st-degree relative ? with colorectal cancer before age 60 years Providers: ? Janusz Pate MD Referring MD: ?Janusz Pate MD Medicines: ? Propofol per Anesthesia Complications: ? No immediate complications. Estimated Blood Loss: ? Estimated blood loss: none. Procedure: ? Pre-Anesthesia Assessment: ? - ASA Grade Assessment: III - A patient with severe ? systemic disease. ? After I obtained informed consent, the scope was ? passed under direct vision. Throughout the procedure, ? the patient's blood pressure, pulse, and oxygen ? saturations were monitored continuously.The ? Colonoscope was introduced through the anus and ? advanced to the cecum, identified by appendiceal ? orifice and ileocecal valve. The colonoscopy was ? performed without difficulty. The patient tolerated ? the procedure well. The quality of the bowel ? preparation was compromised but after copious ? irrigation, just adequate. Findings: ?The perianal and digital rectal examinations were ? normal. ? A 7 mm polyp was found in the mid rectum. The polyp ? was sessile. The polyp was removed with a cold snare. ? Resection and retrieval were complete. ? The exam was otherwise without abnormality on direct ? and retroflexion views. Procedure Code(s): ? --- Professional --- ? 04022, Colonoscopy, flexible; with removal of ? tumor(s), polyp(s), or other lesion(s) by snare ? technique Diagnosis Code(s): ? --- Professional --- ? Z83.71, Family history of colonic polyps ? Z80.0, Family history of malignant neoplasm of ? digestive organs ? D12.8, Benign neoplasm of rectum CPT copyright 2020 [employer]. All rights reserved. The codes documented in this report are preliminary and upon education intern review may be revised to meet current compliance requirements. Janusz Pate MD 10/07/2024 1:15:05 PM This report has been signed electronically.Janusz Pate MD Number of Addenda: 0 Note Initiated On: 10/07/2024 12:51 PM Scope In: Scope Out: ? Endoscopy Department at [facility] - [address] [place] [address], ? [place] [address] Procedure Note Janusz Pate MD - 10/07/2024 [facility] Patient Name: Richard Darden Procedure Date: 10/07/2024 12:51 PM Date of : 1975 Age: 49 Room: ROOM 16 Gender: Male Note Status: Finalized Attending MD: Janusz Pate MD, Procedure Date No Time: 10/07/2024 Procedure: Colonoscopy Indications: Colon cancer screening in patient at increasedrisk: Family history of 1st-degree relative with colon polyps before age 60 years, Screening in patient at increased risk: Family history of 1st-degreerelative with colorectal cancer before age 60 years Providers: Janusz Pate MD Referring MD: Janusz Pate MD Medicines: Propofol per Anesthesia Complications: No immediate complications. Estimated Blood Loss: Estimated blood loss: none. Procedure: Pre-Anesthesia Assessment: - ASA Grade Assessment: III - A patient with severe systemic disease. After I obtained informed consent, the scope was passed under direct vision. Throughout theprocedure, the patient's blood pressure, pulse, and oxygen saturations were monitored continuously.The Colonoscope was introduced through the anus and advanced to the cecum, identified by appendiceal orifice and ileocecal valve. The colonoscopy was performed without difficulty. The patient tolerated the procedure well. The quality of the bowel preparation was compromised but after copious irrigation, just adequate. Findings: The perianal and digital rectal examinations were normal. A 7 mm polyp was found in the mid rectum. The polyp was sessile. The polyp was removed with a coldsnare. Resection and retrieval were complete. The exam was otherwise without abnormality ondirect and retroflexion views. Procedure Code(s): --- Professional --- 88595, Colonoscopy, flexible; with removal of tumor(s), polyp(s), or other lesion(s) by snare technique Diagnosis Code(s): --- Professional --- Z83.71, Family history of colonic polyps Z80.0, Family history of malignant neoplasm of digestive organs D12.8, Benign neoplasm of rectum CPT copyright 2020 [employer]. All rights reserved. The codes documented in this report are preliminary and upon education intern reviewmay be revised to meet current compliance requirements. Janusz Pate MD 10/07/2024 1:15:05 PM This report has been signed electronically.Janusz Pate MD Number of Addenda: 0 Note Initiated On: 10/07/2024 12:51 PM Scope In: Scope Out: Endoscopy Department at [facility] - [address] [place] [id number] IMPRESSION: - One 7 mm polyp in the mid rectum, removed with a cold snare. Resected and retrieved. - The examination was otherwise normal on directand retroflexion views. Recommendation: - Await pathology results. - Repeat colonoscopy in 3 years for surveillance. Janusz Pate MD GI~PROCEDURE ORDERA BLES * Tissue exam (10/07/2024 1:09 PM EST) Final Diagnosis A. Large Intestine, Rectum, polyp x1: - Hyperplastic polyp. 10/08/2024 10:[address] [facility] Gross Description A. Large Intestine, Rectum, polyp x1: Labeled LI rectum polyp x 1 . Received in formalin are two irregular pulliam mucosal tissue fragments, each measuring approximately 0.3 cm in greatest dimension, which are wrapped in paper and submitted in toto one cassette, two pieces, multiple levels on one slide. CHARLY 10/08/2024 10:[address] [facility] Disclaimer Unless otherwise specified, all tissue is 10% NB formalin fixed and paraffin embedded. 10/08/2024 10:[address] [facility] Tissue Rectum structure / Unknown 10/07/2024 1:09 PM EST 10/07/2024 3:27 PM EST Janusz Pate MD LAB PATHOLOGY ORDER JESÚS [facility] [address] [place] [address], documented in this encounter Visit Diagnoses Diagnosis Colon cancer screening Special screening for malignant neoplasms, colon documented in this encounter Historical Medications * This list may reflect changes made after this encounter. Medication Sig Dispensed Refills Start Date End Date zolpidem (AMBIEN) 10 mg tablet Take 1 tablet (10 mg total) by mouth at bedtime as needed. at bedtime sertraline (ZOLOFT) 100 mg tablet Take 2 tablets (200 mg total) by mouth. at bedtime 10/02/2024 Eliquis 2.5 mg tablet Take 1 tablet (2.5 mg total) by mouth 2 (two) times a day. amLODIPine (NORVASC) 10 mg tablet Take 1 tablet (10 mg total) by mouth 1 (one) time each day. allopurinoL (ZYLOPRIM) 100 mg tablet Take 2 tablets (200 mg total) by mouth 1 (one) time each day. added in this encounter Orders Medications Ordered That Jesus ht Not Have Been Administered Count Last Ordered Date First Ordered Date lactated Ringer's infusion 1 10/07/2024 sodium chloride 0.9 % flush 10 mL 2 025 Discharge Count Last Ordered Date First Orde red Date DISCHARGE PATIENT 1 10/07/2024 documented in this encounter Care Teams Internet Network Specialist Relationship Specialty Start Date End Date Freddy Holland MD [address] [place] [address] PCP - General Internal Medicine 10/04/24 documented as of this encounter
--- OUTSIDE RECORDS SUMMARY | 2024-10-15 13:53 | XMS_ITS | Encounter Summary ---
Author Organization [facility] [address] [place] [phone] Care Team Providers Care Manufacturing Worker Name Role Phone Freddy Holland MD Primary Care Provider [phone] Reason for Visit * Auth/Cert (Routine) Specialty Diagnoses / Procedures Referred By José Manuel jackson Referred To Contact Diagnoses Encounter for screening for malignant neoplasm of colon Procedures COLONOSCOPY [facility] [address] [place] [phone] [facility] Endoscopy [address] [place] [address] Referral ID Status Reason Start Date Expiration Date Visits Re quested Visits Authorized [id number] 1 1 Encounter Details Date Type Department Care Team (Late st Contact Info) Description 10/07/2024 12:57 PM EST Anesthesia Event [facility] Endoscopy [address] [place] [address] Cj Krause DO [address] [place] [address] Anesthesia Record Procedure Summary Procedure Name Responsible Anesthesiologist Anesthesia Start Time Anesthesia Stop Time COLONOSCOPY Cj Krause DO 10/07/24 1257 1314 Events Date Time Event Comment 10/07/2024 1134 1257 An Start 1257 An Start Data The patient wa s reevaluated immediately before moderate or deep sedation use and before anesthesia induction. 1257 Anesthesia Ready 1257 In Room 1257 Yosef Bilateral heari ng aids Left one removed and secured with glasses 1258 Yosef Time out done 1303 Proc Start 1310 Proc Fin 1311 an stop data 1311 Transport to PACU/ICU Patien t reassessed and ready for transfer, airway stable. Patient transport to designated recovery area. {Transport to PACU/ICU:[id number]} 1311 Out of Room 1312 Handoff to RN I completed my handoff to the receiving nurse during which we: 1. Identified the patient 2. Identified the responsible provider 3. Reviewed the pertinent medical history 4. Discussed the surgical course 5. Reviewed intra-op anesthesia management and issues during anesthesia 6. Set expectations for post-procedure period 7. Allowed opportunity for questions and acknowledgement of understanding. 1314 An Stop Meds Name Total propofol (DIPRIVAN) injection 10 mg/mL 3 00 mg lidocaine PF (XYLOCAINE-MPF) local injec tion 2% 100 mg lactated Ringer's infusion 300 mL * Agents Name O2 * Blood No blood administrations on file. Lines, Drains, and Airways Type Details Placement Removal Peripheral IV Placement Date: 10/07/24; Placement Time: 1254; Catheter Size: 20 G; Orientation: Right; Location: Hand; Site Prep: Chlorhexidine; Inserted by: Simón GARCIA RN; Insertion Attempts: 1; Patient Tolerance: Tolerated well; Removal Date: 10/07/24; Removal Time: 1352 10/07/24 1254 by Jody Pearl RN 10/07/24 1352 by Mariann Ohara RN documented in this encounter Social History Tobacco Use Types Packs/Day Years [...] as of this encounter Progress Notes * Parrish Morris CRNA - 10/07/2024 1:16 PM EST Patient: Richard Darden Procedure Summary Date: 10/07/24 Room / Location: [facility] Endoscopy Anesthesia Start: 1257 Anesthesia Stop: 1314 Procedure: COLONOSCOPY Diagnosis: Colon cancer screening (Screening in patient with FH polyp 1st deg relative age < 60 yrs) (Screening in patient at increased risk/FH 1st-deg rel with colon cancer < 60 yo) Scheduled Providers: Janusz Pate MD; Parrish Morris CRNA; Cj Krause DO Responsible Provider: Cj Krause DO Anesthesia Type: MAC ASA Status: 3 Anesthesia Plan: MAC Last Vitals: Vitals Value Taken Time BP 10/07/24 1316 Temp 10/07/24 1316 Pulse 10/07/24 1316 Resp 10/07/24 1316 SpO2 10/07/24 1316 No data recorded Anesthesia Post Evaluation Patient location during evaluation: PACU Patient participation: complete - patient participated Level of consciousness: awake Pain score: 0 Pain management: adequate Airway patency: patent Anesthetic complications: no Cardiovascular status: acceptable Respiratory status: acceptable Hydration status: acceptable Nausea: No Vomiting: No There were no known notable events for this encounter. * Cj Krause DO - 10/07/2024 11:33 AM EST 49 y.o. male scheduled for Colon cancer screening [COLONOSCOPY] Ht Readings from Last 1 Encounters: 08/15/22 1.905 m (75 ) Wt Readings from Last 1 Encounters: 08/15/22 155 kg (342 lb 9.6 oz) There is no height or weight on file to calculate BMI. Past Medical History: Diagnosis Date Anxiety and depression DX:Anxiety and depression DVT (deep venous thrombosis) ([facility]) DX:DVT (deep venous thrombosis) ([facility]) [place] (hard of hearing) DX:[place] (hard of hearing) Obesity DX:Obesity HARLEEN (obstructive sleep apnea) DX:HARLEEN (obstructive sleep apnea) Restrictive lung disease DX:Restrictive lung disease Past Surgical History: Procedure Laterality Date CHOLECYSTECTOMY PROCEDURE: HISTORICAL CHOLECYSTECTOMY OTHER SURGICAL HISTORY PROCEDURE: ESOPHAGEAL MASS BIOPSY SPCMN PATHOLOGY EXAM OTHER SURGICAL HISTORY PROCEDURE: HISTORY OTHER; COMMENT: Surgical intervention for scoliosis Denies anesthesia complications Not on File No current outpatient medications on file prior to encounter. No current facility-administered medications on file prior to encounter. Current In-hospital Medications Prior to Admission medications Not on File Social History Tobacco Use Smoking status: Never Substance Use Topics Alcohol use: Not Currently Drug use: Never Is the patient a current smoker (e.g. cigarette, cigar, pip, e-cigarette, or mariajuana)? Yes [] No[] Patient previously instructed to abstain from smoking on the day of procedure? Yes [] No[] Patient smoked on the day of procedure? Yes [] No[] ASPIRE smoking VBR: [] Not interested in quitting [] Interested in quitting- referred to treatment [] Interested in quitting - treatment provided Visit Vitals Smoking Status Never LABS: No results found for: WBC , HGB , HCT , MCV , PLT No results found for: GLUCOSE , CALCIUM , NA , K , CO2 , CL , BUN , CREATININE No results found for: INR , PROTIME No results found for: PTT EKG No results found for this or any previous visit (from the past 4464 hour(s)). ECHO No results found for this or any previous visit. CATH No results found for this or any previous visit. Relevant Problems No relevant active problems Clinical information reviewed: Anesthesia Plan ASA 3 Anesthesia Plan: MAC Anesthesia Risks Discussed serious complications Induction method: intravenous Anesthetic plan and risks discussed with patient. Anesthesia Evaluation Patient summary reviewed Airway Mallampati: II Dental - normal exam Pulmonary - normal exam Cardiovascular - normal exam Neuro/Psych GI/Hepatic/Renal Endo/Other Abdominal PONV RISK SCORE: 1 There were no vitals filed for this visit. SpO2 Readings from Last 1 Encounters: No data found for SpO2 No results found for: WBC , RBC , HGB , HCT , PLT , MCV Not on File STOP BANG: No data recorded NPO Status: No data recorded documented in this encounter Plan of Treatment Not on file documented as of this encounter Visit Diagnoses Not on filedocumented in this encounter Administered Medications Inactive Administered Medications - up to 3 most recent administrations Medication Order MAR Action Action Date Dose Rate Site lactated Ringer's infusion 100 mL/hr, intravenous, Continuous, Starting on Carmen 10/07/24 at 1200 New Bag 10/07/2024 12:57 PM EST 125 mL/hr lidocaine (PF) (XYLOCAINE-MPF) 2 % injection injection, As needed, Starting on Carmen 10/07/24 at 1301, Anesthesia Intraprocedure Given 10/07/2024 1:01 PM EST 100 mg propofoL (DIPRIVAN) injection intravenous, As needed, Starting on Carmen 10/07/24 at 1301, Anesthesia Intraprocedure Given 10/07/2024 1:07 PM EST 100 mg Given 10/07/2024 1:06 PM EST 50 mg Given 10/07/2024 1:01 PM EST 150 mg documented in this encounter Care Teams Manufacturing Worker Relationship Specialty Start Date End Date Freddy Holland MD [address] [place] [address] PCP - General Internal Medicine 10/04/24 documented as of this encounter
--- OUTSIDE RECORDS SUMMARY | 2024-10-15 13:53 | XMS_ITS | Clinical Summary ---
Author Organization [facility] Address [address] [place] [address] Phone Care Team Providers Care Stove Tender Name Role Phone Freddy Holland MD Primary Care Provider Allergies No known active allergies Medications Medication Sig Dispensed Refills Start Date End Date Status allopurinoL (ZYLOPRIM) 100 mg tablet Take 2 tablets (200 mg total) by mouth 1 (one) time each day. Active amLODIPine (NORVASC) 10 mg tablet Take 1 tablet (10 mg total) by mouth 1 (one) time each day. Active Eliquis 2.5 mg tablet Take 1 tablet (2.5 mg total) by mouth 2 (two) times a day. Active sertraline (ZOLOFT) 100 mg tablet Take 2 tablets (200 mg total) by mouth. at bedtime 10/02/2024 Active zolpidem (AMBIEN) 10 mg tablet Take 1 tablet (10 mg total) by mouth at bedtime as needed. at bedtime Active Encounters Date Type Department Care Team Description 10/13/2024 Telephone Gastroenterology - 299 [facility] 299 [facility] [address] [place] [address] Lucia Logan MA Results 10/07/2024 12:57 PM EST Anesthesia Event [facility] [address] [place] [phone] Cj Krause DO 10/07/2024 11:17 AM EST - 10/07/2024 11:59 PM EST Hospital Encounter [facility] [address] [place] [phone] Janusz Pate MD Steele, Matthew G, CRNA Colon cancer screening Discharge Disposition: Home or Self Care 10/04/2024 Telephone Gastroenterology - [address] [facility] [address] [address] Janusz Pate MD 09/20/2024 Telephone Gastroenterology - 299 [facility] [address] [address] Janusz Pate MD 08/30/2024 Telephone Gastroenterology - [address] [address] Jose Armando Brink MA 08/25/2024 Telephone Gastroenterology - [address] [address] Jose Armando Brink MA 08/23/2024 Telephone Gastroenterology - [address] [address] Jose Armando Brink MA 07/27/2024 Telephone Gastroenterology - [address] [phone] Jose Armando Brink MA from Last 3 Months Surgical History Surgery Date Site/Laterality Comments CHOLECYSTECTOMY PROCEDURE: HISTORICAL CHOLECYSTECTOMY OTHER SURGICAL HISTORY PROCEDURE: ESOPHAGEAL MASS BIOPSY SPCMN PATHOLOGY EXAM OTHER SURGICAL HISTORY PROCEDURE: HISTORY OTHER; COMMENT: Surgical intervention for scoliosis Medical History Medical History Date Comments DVT (deep venous thrombosis) ([facility]) DX:DVT (deep venous thrombosis) ([facility]) Obesity DX:Obesity Anxiety and depression DX:Anxiet y and depression HARLEEN (obstructive sleep apnea) DX :HARLEEN (obstructive sleep apnea) Restrictive lung disease DX:Rest rictive lung disease SYCUAN (hard of hearing) DX:SYCUAN ([address] of hearing) Hearing loss Gout Depression Hypertension Pulmonary emboli ([facility]) Family History Relation Name Status Comments Maternal Grandmother COLON C A Social History Tobacco Use Types Packs/Day Years [...] file Not on file Not on file Obstetrics History Last Filed Vital Signs Vital Sign Reading [...] Mass Index 39.37 10/07/2024 12:49 PM EST Plan of Treatment Health Maintenance Due Date Last Done Comments Hepatitis B Vaccines (1 of 3 - 19+ 3-dose series) 1996 Cholesterol Screening (Lipid Panel) 08/16/2022 Depression Screening 08/16/2022 HIV Screening 08/16/2022 Hepatitis C Screening 08/16/2022 Social Influencers of Health Screening 08/16/2022 Hypertension/CHF/CAD Annual BMP Blood Test 08/18/2022 DTaP,Tdap,and Td Vaccines (2 - Td or Tdap) 06/03/2034 06/03/2024 Colorectal Cancer Screening: Colonoscopy 10/07/2034 10/07/2024 Influenza Vaccine Completed 06/03/2024, , 07/12/2022, Additional history exists COVID-19 Vaccine Completed 06/10/2024, 12/2021, 08/03/2021, Additional history exists HIB Vaccines Aged Out No longer eligi ble based on patient's age to complete this topic HPV Vaccines Aged Out No longer eligi ble based on patient's age to complete this topic Hepatitis A Vaccines Aged Out No long er eligible based on patient's age to complete this topic IPV Vaccines Aged Out No longer eligi ble based on patient's age to complete this topic MMR Vaccines Aged Out No longer eligi ble based on patient's age to complete this topic Meningococcal ACWY Vaccine Aged Out N o longer eligible based on patient's age to complete this topic Pneumococcal Vaccine: Pediatrics (0 to 5 Years) and At-Risk Patients (6 to 64 Years) Aged Out No longer eligible based on patient's age to complete this topic RSV Immunization Patients Under 20 months Aged Out No longer eligible based on patient's age to complete this topic Varicella Vaccines Aged Out No longer eligible based on patient's age to complete this topic Medical Devices Implanted Type Area Counselor Camp Device Identifier Shelf Expiration Date Model / Serial / Lot Implants Implants Bilateral: Spine Lumbar Procedures Procedure Name Priority Date/Time Associated Diagnosis Comments COLONOSCOPY Routine 10/07/2024 1:11 PM EST Colon cancer screening TISSUE EXAM Routine 10/07/2024 1:09 PM EST Colon cancer screening from Last 3 Months Results * COLONOSCOPY Anesthesia - MAC; [facility] (10/07/2024 1:11 PM EST) Anatomical Region [...] for surveillance. Narrative 10/07/2024 1:15 PM EST [facility] Patient Name: Richard Darden Procedure Date: [...] Procedure Code(s): ? --- Professional --- ? 15691, Colonoscopy, flexible; with removal of ? tumor(s), polyp(s), or other lesion(s) by snare ? technique Diagnosis Code(s): ? --- Professional --- ? Z83.71, Family history of colonic polyps ? Z80.0, Family history of malignant neoplasm of ? digestive organs ? D12.8, Benign neoplasm of rectum CPT copyright 2020 [employer]. All rights reserved. The codes documented in this report are preliminary and upon striker out review may be revised to meet current compliance requirements. Janusz Pate MD 10/07/2024 1:15:05 PM This report has been signed electronically.Janusz Pate MD Number of Addenda: 0 Note Initiated On: 10/07/2024 12:51 PM Scope In: Scope Out: ? Endoscopy Department at [facility] - [address] [place] [address], ? [place] [address] Procedure Note Janusz Pate MD - 10/07/2024 [facility] Patient Name: Richard Darden Procedure Date: [...] retroflexion views. Procedure Code(s): --- Professional --- 69340, Colonoscopy, flexible; with removal of tumor(s), polyp(s), or other lesion(s) by snare technique Diagnosis Code(s): --- Professional --- Z83.71, Family history of colonic polyps Z80.0, Family history of malignant neoplasm of digestive organs D12.8, Benign neoplasm of rectum CPT copyright 2020 [employer]. All rights reserved. The codes documented in this report are preliminary and upon striker out reviewmay be revised to meet current compliance requirements. Janusz Pate MD 10/07/2024 1:15:05 PM This report has been signed electronically.Janusz Pate MD Number of Addenda: 0 Note Initiated On: 10/07/2024 12:51 PM Scope In: Scope Out: Endoscopy Department at [facility] - [address] [place] [phone] IMPRESSION: - One 7 mm polyp in [...] - Hyperplastic polyp. 10/08/2024 10:32 AM EST [facility] Gross Description A. Large Intestine, Rectum, polyp x1: Labeled LI rectum polyp x 1 . Received in formalin are two irregular pulliam mucosal tissue fragments, each measuring approximately 0.3 cm in greatest dimension, which are wrapped in paper and submitted in toto one cassette, two pieces, multiple levels on one slide. CHARLY 10/08/2024 10:32 AM [facility] Disclaimer Unless otherwise specified, all tissue is 10% NB formalin fixed and paraffin embedded. 10/08/2024 10:32 AM EST [facility] Tissue Rectum structure / Unknown 10/07/2024 1:09 PM EST 10/07/2024 3:27 PM EST Janusz Pate MD LAB PATHOLOGY ORDER JESÚS [facility] [address] [place], [place] [address] [phone] from Last 3 Months Care Teams Stove Tender Relationship Specialty Start Date End Date Freddy Holland MD [address] [place] [address] PCP - General Internal Medicine 10/04/24
--- OUTSIDE RECORDS SUMMARY | 2024-10-15 13:53 | XMS_ITS | Encounter Summary ---
Author Organization [facility] Address [address] [place] [address] Care Team Providers Care Retail Department Reset Name Role Phone Freddy Holland MD Primary Care Provider + [phone] Encounter Details Date Type Department Care Team ([facility] st Contact Info) Description 10/04/2024 Telephone Gastroenterology - 299 [place] 299 [facility] [address] [place] [address] Janusz Pate MD 229 [facility] [address] [place] [address] Social History Tobacco Use Types Packs/Day Years Used Date Smoking Tobacco: Never Alcohol Use Standard Drinks/Week Comments [...] Progress Notes * Lucia Logan MA - 10/05/2024 12:06 PM EST Pt received wrong email. Received insurance card. I will call to obtain PA * Talia Matos - 10/04/2024 4:24 PM EST PT RETURNED CALL--I GAVE HIM YOUR EMAIL. -AM * Lucia Logan MA - 10/04/2024 2:07 PM EST Lmom to cb. I need a phone number to call for auth or a picture of insurance sent to my email. * Talia Matos - 10/04/2024 1:03 PM EST PT SCHED FOR COLON 10/07/24, INS CHANGED, THINKS HE MAY NEED AUTH, NEW INS PUT INTO SYSTEM documented in this encounter Plan of Treatment Not on file documented as of this encounter Visit Diagnoses Not on filedocumented in this encounter Care Teams Retail Department Reset Relationship Specialty Start Date End Date Freddy Holland MD [address] [place] [address] PCP - General Internal Medicine 10/04/24 documented as of this encounter
--- OUTSIDE RECORDS SUMMARY | 2024-10-15 13:53 | XMS_ITS | Encounter Summary ---
Author Organization [facility] Address [address] [place] [address] Care Team Providers Care Sales Management Trainee Name Role Phone Unavailable Primary Care Provider Unavailabl e Encounter Details Date Type Department Care Team ([facility] Contact Info) Description 09/20/2024 Telephone Gastroenterology - 299 [place] [address] [phone] Janusz Pate MD [address] [address] Social History Tobacco Use Types Packs/Day Years [...] Progress Notes * Lucia Logan MA - 09/20/2024 1:50 PM EST Pt is scheduled on 10/07/24. No report yet available. * Talia Matos - 09/20/2024 9:[address] Holland is requesting pt's colon/path documented in this encounter Plan of Treatment Not on file documented as of this encounter Visit Diagnoses Not on filedocumented in this encounter
--- OUTSIDE RECORDS SUMMARY | 2024-10-15 13:53 | XMS_ITS | Data Portability ---
Author Organization [facility] [facility] Address [address] [facility] [place] [address] Care Team Providers Care Environmental Department Manager Name Role Phone HOOD PAT Primary Care Provider NICOLE ANGUIANO It Corporate Recruiter [phone] Assessment Encounter Date Assessment Date Assessment LastModified by Organization Details LastModified Time 05/22/2022 05/22/2022 This is a pleasant 46-year-old male his right knee sustained a PCL injury at the time of the fall his left knee we feel based off exam as well as subjective history extended direct trauma to the anterior portion of the knee. The MRI is present for review today which demonstrates chondromalacic changes at the patella slight patella tilt and very slight patella anjana. Patient's diagnosis of the left knee is that of symptomatic patella chondromalacic changes a result of the acute trauma to the anterior portion of the knee. We discussed proceeding with hyaluronic acid injections as well as a Zilretta injection with the first NICKERSON injection. The patient would like to proceed accordingly we do feel that his weight is contributing to his slow recovery certainly not a cause of his pain but a contributing factor towards his continued discomfort as is the weakness of the extremity and his quad demonstrates clear decreased bulk compared to the contralateral side we discussed an aggressive strengthening program injection therapy we will schedule accordingly and we will see patient back for further review [id number] Not available 05/24/2022 07:23:14 Plan of Treatment Reminders Order Date Submit Date Provider Last Modified By Organization Details Last Modified Time Details Appointments None record ed. Lab None record ed. Referral None record ed. Procedures None record ed. Surgeries None record ed. Imaging None record ed. Medication Orders None record ed. Patient TargetsNo targets recorded. Patient InstructionsNo instructions recorded. Reason for Referral None Reported. Results Created Date Observation Date Name Description Value Unit Range Abnormal Flag Note LastModifiedBy Organization Detail LastModifiedTime 05/21/20 22 12/14/2021 MRI, knee, w/o contr ast No observ ation record ed. Not Available 2021 11:25:50 05/22/20 22 05/22/2022 XR, knee http:/ [email or web address] ntegra tionPr ocesso [email or web address] ?CMD=O PENSTU DY&ACC ESSION =[id number], [address], 05/23/2022 08:33:14 05/22/20 22 05/22/2022 XR, lower extre mity http:/ [email or web address]/I ntegra tionPr ocesso r.aspx ?CMD=O PENSTU DY&ACC ESSION =[id number], [address], 05/23/2022 08:33:15 Result Notes None recorded. Procedures Surgical History Date Name Laterality Status Provider Name and Address Organization Details Recorded Time 04/08/19 93 Orthopaedic Surgery completed Kathie Orellana [facility] 05/22/2022 13:51:57 [facility]/22/2022 13:52:04 Imaging Results Imaging Date Name Status LastModified by Organiz ation Details LastModified Time 12/14/2021 MRI, knee, w/o contrast completed Information not available 05/21/2022 11:25:50 05/22/2022 XR, knee completed [address], [address], 05/23/2022 08:33:14 05/22/2022 XR, lower extremity completed [address], [address], 05/23/2022 08:33:15 Procedure Notes None recorded. Medical Equipment None Reported. Allergies No known drug allergies Medications Name Sig Start Date Stop Date Status Note LastModified by Organization Details LastModified Time cyclobenzap rine 10 mg tablet TAKE 1 TABLET BY MOUTH EVERYDAY AT BEDTIME active Not Available Not Available No t Available citalopram 40 mg tablet TAKE 1 TABLET BY MOUTH AT BEDTIME active Not Available Not Available No t Available azithromyci n 250 mg tablet TAKE 2 TABLETS BY MOUTH TODAY, THEN TAKE 1 TABLET DAILY FOR 4 DAYS 05/22 completed Not Available Not Available Not Available prednisone 5 mg tablet PLEASE SEE ATTACHED FOR DETAILED DIRECTION S 05/22 completed Not Available Not Available Not Available allopurinol 100 mg tablet TAKE 2 TABLETS BY MOUTH EVERY DAY active Not Available Not Available No t Available pantoprazol e 40 mg tablet,keny yed release TAKE 1 TABLET BY MOUTH EVERY DAY active Not Available Not Available No t Available topiramate 200 mg tablet TAKE 1 TABLET BY MOUTH AT BEDTIME 05/22 completed Not Available Not Available Not Available hydrochloro thiazide 25 mg tablet TAKE 1 TABLET BY MOUTH EVERY DAY active Not Available Not Available No t Available metoprolol succinate ER 25 mg tablet,exte nded release 24 hr TAKE 1 TABLET BY MOUTH EVERY DAY active Not Available Not Available No t Available zolpidem 10 mg tablet TAKE 1 TABLET BY MOUTH EVERY DAY AT BEDTIME NEEDED active Not Available Not Available No t Available albuterol sulfate HFA 90 mcg/actuati on aerosol inhaler INHALE 2 PUFFS BY MOUTH FOUR TIMES A DAY NEEDED 05/22 completed Not Available Not Available Not Available lisinopril 40 mg tablet TAKE 1 TABLET BY MOUTH EVERY DAY active Not Available Not Available No t Available cyclobenzap rine 5 mg tablet TAKE 2 TABLETS BY MOUTH 3 TIMES A DAY 05/22 completed Not Available Not Available Not Available topiramate 50 mg tablet TAKE 1 TABLET BY MOUTH EVERY DAY 05/22 completed Not Available Not Available Not Available desvenlafax ine succinate ER 50 mg tablet,exte nded release 24 hr TAKE 1 TABLET BY MOUTH AFTER BREAKFAST active Not Available Not Available No t Available desvenlafax ine succinate ER 100 mg tablet,exte nded release 24 hr TAKE 1 TABLET BY MOUTH EVERY MORNING AFTER BREAKFAST 05/22 completed Not Available Not Available Not Available Eliquis 5 mg tablet TAKE 1 TABLET BY MOUTH TWICE A DAY active Not Available Not Available No t Available Zilretta 32 mg intra-artic ular suspension, extended release Injection 5ML into Right Knee by Intraarti cular Route 1once by clinical provider 2021 active Not Available Not Available Not Avai lable Eliquis DVT-PE Treatment 30-Day Starter 5 mg (74 tablets) in dose pack TAKE 1 TABLET BY MOUTH DIRECTED, 30-DAY STARTER PACK #74 5MG TABLETS 05/22 completed Not Available Not Available Not Available Vitals Date Recorded Body weight Body mass index (BMI) Body height Provider Name and Address Organization Details Last Updated DateTime 05/22/2022 568860.59 g 42.7 kg/m2 190.5 cm Kathie Esteban [facility] 05/22/2022 13:49:46 Social History Question Answer Notes LastModified by 5to1 ion Details LastModified Time Tobacco Smoking Status Never Smoker [facility] 05/22/2022 13:50:04 What Is Your Level Of Alcohol Consumption? None Information not available 05/22/2022 What Is Your Level Of Caffeine Consumption? Occasional Information not available 05/22/2022 Are You Currently Employed? Yes Information not available 05/22/2022 Do You Or Have You Ever Used E-cigarettes Or Vape? 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 Yes L Knee Information not available 05/22/2022 Do You Or Have You Ever Used Smokeless Tobacco? Never Used Smokeless Tobacco Information not available 05/22/2022 How Much Tobacco Do You Smoke? No Information not available 05/22/2022 What Types Of Sporting Activities Do You Participate In? None Information not available 05/22/2022 How Many Years Have You Smoked Tobacco? 0 Information not available 05/22/2022 Sex: Unknown Functional Status Question Answer Note LastModified by Organizat ion Details LastModified Time What is your exercise level? Occasional Information not available 05/22/2022 Mental Status None recorded. Family History Nothing Reported. Medical History Condition Response Blood Clots / Phlebitis Y HIV or AIDS N Heart Problems N High Blood Pressure Y Depression or Anxiety Y Irregular Heartbeat N MRSA N Emphysema / Chronic Bronchitis N Any Other Significant Medical Issues N Reaction to General/Local Anesthesia N Hepatitis / Jaundice N Weight Gain / Loss N Kidney / Bladder Infections N Diabetes N Bleeding Disorder N Hearing Loss Y Angina, Heart Failure or Attack N Night Sweats N Seizures / Epilepsy N Osteoarthritis / Rheumatoid arthritis / Other N Cancer N Stroke N Chemical Dependency / Alcoholism N Ulcer / Stomach Bleeding / Indigestion N Visual Loss or Glaucoma N Psoriasis / Skin Rash N Thyroid Disorder N Heart Disease N Asthma / Shortness of Breath / Sleep Dining Car Conductor ea (please specify) N Pulmonary Embolism N Past Encounters Encounter ID Performer Location Encounter Start Date Encounter Closed Date Diagnosis/Indication Diagnosis SNOMED-CT Code Diagnosis ICD10 Code Diagnosis Note [id number] ERIN ESPINOZA MD [place] [phone] 05/22/2022 12:22:00 05/22/2022 15:01:45 Chondromalacia of right patella [id number] M22.41 Health Concerns Section Related Observation LastModified by Organization Detai ls LastModified Time None Recorded Concern Status LastModified by Organization Details LastModified Time None Recorded Advance Directives Directive None Recorded Payers Encounter Date Sequence Insurance Name Policy Number Policy Chavis Covered Member ID Chavis Member ID Guarantor Name 05/22/2022 [facility] Richard Darden Notes Date Note Type Note Provider Name and Address Organization Details Recorded Time 05/22/2022 text/html Patient is a pleasant male presents in today with his child welfare caseworker for evaluation of bilateral knees. 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 He presents in today for a second opinion and arthroscopy was recommended for the left knee. To date in terms of treatment he has had bilateral corticosteroid injections which were given to this patient on 11/08/2021. Patient states his chief complaint on the right knee is a sense of instability while mild is present his left knee his chief complaint is pain pain is located to the anterior portion of the knee. He denies any significant left knee posterior joint pain he is slightly hard of hearing and we spoke loudly to accommodate for this he walks with out significant limping. Patient has a past medical history of a DVT and pulmonary embolism. He is currently on anticoagulant therapy. ERIN ESPINOZA MD [address] [place] [address], [phone], [facility] 06/20/2022 11:11:41
== END 2024-10-15 13:23 | disposition home or self-care (01) ==
LOC: HO.HAP 13:22
PROVIDERS: Visit Provider Internal Medicine
DX: Z13.89 Encounter for screening for other disorder (principal)

== ENCOUNTER 2024-11-04 12:55 | Outpatient (REF) | payer SELFPAY ==
--- OUTSIDE RECORDS SUMMARY | 2024-11-04 15:21 | XMS_ITS | Clinical Summary ---
Author Organization [facility] Address [address] [place] [address] Phone Care Team Providers Care Lab Courier Name Role Phone Freddy Holland MD Primary Care Provider + [phone] Allergies No known active allergies Medications lisinopril [...] Visit [facility] [address] [address] Jw Pearson MD [address] [address] Health Maintenance Due Date Last Done Comments Pneumococcal Vaccine: Pediat rics (0 to 5 Years) and At-Risk Patients (6 to 64 Years) (1 of 2 - PCV) 1983 Hepatitis B Vaccine (1 of 3 - 19+ 3-dose series) 04/19 Influenza Vaccine (#1) 2024 Insurance [facility] Care Teams Lab Courier Relationship Specialty Start Date End Date Freddy Holland MD [address] [place] [address] PCP - General Internal Medicine 06/18/23
--- OUTSIDE RECORDS SUMMARY | 2024-11-04 15:21 | XMS_ITS | Data Portability ---
Author Organization TANG Jimenez [facility], [address] Address [address] [place] [address] Care Team Providers Care Tower Hand Name Role Phone RAINA NIEVES Practice Architect [phone] Assessment Encounter Date Assessment Date Assessment LastModified by Organization Details LastModified Time 08/29/2024 08/29/2024 Patient was evaluated by the Physician Hot Iron Worker using AV technology. This type of exam [...] 3 or more view 2023 024 [facility], [address] [place] [address], [address], 4 18:10:31 Medication Orders amoxicillin 875 mg-potassiu m clavulanate 125 mg tablet 2023 024 [id number], [address] [place], [address], 4 10:33:59 clotrimazol e-betametha sone 1 %-0.05 % topical cream 2023 024 [id number], [address] [place], [address], 10:34:06 Patient TargetsNo targets recorded. Patient Instructions Encounter Date Encounter Id Patient Instructions Last Modified By Organization Details Last Modified Time 10/04/2023 [id number] hives: care instructions samm Not available 10/04/2023 16:47:26 - Daily cleansin g of intertriginous skin with a mild cleanser followed by drying of affected area with a inspector hairspring truing on a cool setting - Aeration of affected area when feasible - Daily application of drying powders - Use of absorbent material or clothing, such as cotton or macedo wool, to separate skin in folds [facility] Not available 10/04/2023 16:47:42 01/14/2024 [id number] learning about rice (rest, ice, compression, and elevation) [email or web address] Not available 01/14/2024 17:16:41 Recommend rest, icing intermittently Physical Therapy and follow up with Podiatry. [email or web address] Not available 01/14/2024 17:46:17 05/07/2024 [id number] Acute Sinusitis: Care Instructions Not available 05/07/2024 16:53:15 08/29/2024 [id number] upper respirator y infection (cold): care instructions Not available 08/29/2024 10:50:54 Reason for Referral None Reported. Results Created Date Observation Date Name Description Value Unit Range Abnormal Flag Note LastModifiedBy Organization Detail LastModifiedTime 01/14/20 24 01/14/2024 XR, foot, 3 or more view No observ ation record ed. [facility] [address] [facility], [place], [address], 01/14/2024 19:27:55 Result Notes None recorded. Problems Name Problem SNOMED Code Status Onset Date Resolution Date Notes Provider Name and Address Organization Details Recorded Time Hypertensive disorder 66290296 Active Suellen cheung PA - [facility] 4 16:12:30 Diabetes mellitus 07235543 Active Suellen cheung PA - [facility] 4 16:12:38 Anxiety 44708572 Active Suellen cheung PA - [facility] 4 16:12:47 Problem Notes None recorded. Procedures Surgical History Date Name Laterality Status Provider Name and Address Organization Details Recorded Time 4 Virtual Visit completed Cinthia BECKWITH - [facility] 08/29/2024 10:32:31 Imaging Results Imaging Date Name Status LastModified by Liset ation Details LastModified Time 01/14/2024 XR, foot, 3 or more view completed [email or web address] [facility] [address] [facility] [place], [address], 01/14/2024 19:27:55 Procedure Notes None recorded. Medical [...] Updated DateTime 4 190.5 cm 38.7 kg/m2 814673. 63 g 98 % 98 % 78 [...] Updated DateTime 4 190.5 cm 39.4 kg/m2 604242. 6 g 99 % 99 % 84 /min 18 /min 97.5 [degF] 130 mm[Hg] 86 mm[Hg] Roberta Wilkins PA - [facility] 17:10:43 Date Recorded Body height Body mass index (BMI) Body weight Pain severity - 0-10 verbal numeric rating [Score] - Reported Oxygen saturation Oxygen saturation in Arterial blood by Pulse oximetry Heart rate Respiratory rate Body temperature Systolic blood pressure Diastolic blood pressure Provider Name and Address Organization Details Last Updated DateTime 190.5 cm 39.4 kg/m2 572245. 6 g 3 98 % 98 % 105 /min 18 /min 98.7 [degF] 142 mm[Hg] 98 mm[Hg] Suellen Espinoza PA - [facility] 4 16:49:32 Date Recorded Body height Body mass index (BMI) Body weight Provider Name and Address Organization Details Last Updated DateTime 08/29/2024 190.5 cm 39.4 kg/m2 326393.6 g Cinthia Ale PA - [facility] 08/29/2024 10:33:52 Social History Question Answer Notes LastModified by Organizat ion Details LastModified Time Tobacco Smoking Status Never Smoker Seullen cheung PA - [facility] 10/04/2023 16:13:33 What Is Your Level Of Alcohol Consumption? None Information not available 10/04/2023 Are You Currently Employed? No Information not available 08/29/2024 Have You Had A Flu Shot This Season? Yes [email or web address] Information not available 10/04/2023 What Is Your Water Source? City Information not available 08/29/2024 What Is Your Heat Source? Electric Information not available 08/29/2024 Have You Had Direct Contact, Or Contact During Intimacy, With Monkeypox Rash, Scabs, Or Body Fluids From A Person With Monkeypox? No [email or web address] Information not available 01/14/2024 What Was The Date Of Your Most Recent Tobacco Screening? 05/07/2024 Information not available 05/07/2024 What Is Your Relationship Status? Information not available 08/29/2024 Are You Passively Exposed To Smoke? No Information no t available 08/29/2024 Do You Use Any Illicit Or Recreational Drugs? No [email or web address] Information not available 10/04/2023 Have You Recently Traveled Abroad? No [email or web address] Information not available 10/04/2023 Sex: Unknown Functional Status None recorded. Mental Status None recorded. Family History Nothing Reported. Medical History No medical history recorded. Past Encounters Encounter ID Performer Location Encounter Start Date Encounter Closed Date Diagnosis/Indication Diagnosis SNOMED-CT Code Diagnosis ICD10 Code Diagnosis Note [id number] [address] [facility], [place] [address] 07/17/2021 08:03:29 07/17/2021 09:03:28 [id number] [address] [facility], [place] [address] 10/25/2016 08:10:10 10/25/2016 09:09:58 [id number] [address] [place] [address] 11/04/2016 14:20:19 11/04/2016 15:47:57 [id number] [address] [facility], [place] [address] 11/13/2016 14:19:38 11/13/2016 16:09:06 [id number] [address] [facility], [place] [address] 12/29/2017 08:18:27 12/29/2017 09:25:12 [id number] [address] [facility], [place] [address] 12/23/2018 08:17:50 12/23/2018 08:56:59 [id number] [address] [facility], [place] [address] 11/29/2018 16:36:13 11/29/2018 17:14:28 [id number] [address] [place] [address] 06/30/2018 08:21:01 06/30/2018 10:27:37 [id number] Sha Tapia, EDU [address] [facility] [address] [place] [address] 10/04/2023 15:58:09 10/04/2023 16:49:55 Candidiasis of skin 00846958 B37.2 What are ringworm, athlete's foot, and [...] dry yourself well after swimming or showering. [id number] TANG SALAZAR [address] [facility] [address] [place] [address] 01/14/2024 17:01:01 01/14/2024 17:51:10 Pain in right foot 0985064779 43802 M79.671 Right Achi lles tendinitis 6152616056 27787 M76.61 Calcaneal spur 43969455 M77.31 [id number] TANG Mcguire [address] [facility] [address] [facility] [place] [address] 05/07/2024 16:40:23 05/07/2024 16:54:17 Acute sinusitis 41781911 J01.90 Based on your presentati on and [...] watery post nasal drip. 6. Steroid Nasal [place] like Flonase or Nasonex is recommende d. [...] notice immediate response. Thank you for using [employer] today, please feel free to contact our office if you have any questions or concerns. [id number] TANG Mcguire [address] [place] [address] 08/29/2024 10:31:10 08/29/2024 10:51:43 Upper respiratory infection 05834674 J06.9 Patient presented with symptoms of upper [...] pain or worsening. Thank you for using [employer] today, please feel free to contact our [...] Chavis Member ID Guarantor Name 07/17/2021 1 [facility]3435 5 Richard Husseint [id number] Richard Darden 10/04/2023 1 [facility]3435 5 Richard Adelso [id number] Richard Adelso 01/14/2024 1 [facility]3435 5 Richard Adelso [id number] Richard Adelso 05/07/2024 1 [facility]3435 5 Richard Adelso [id number] Richard Adelso 08/29/2024 1 [facility]3435 5 Richard Adelso [id number] Richard Darden Notes Date Note Type Note [...] Sha Tapia NP [address] [place], [address], PA - [facility] 10/04/2023 16:49:58 4 text/html Foot/Ankle UCReported bypatient.Notes:48 y.o male pt presents with intermittent rigth heel pain that started a few weeks ago. Pt denies any specific injury. He has a slight elevated area to his heel. He denies any recent trauma or injury. TANG SALAZAR [address] [place], [address], PA [employer] [facility] 01/14/2024 19:03:41 4 text/html 49 y/o male here with R sided facial pain for 3 days, now with upper teeth pain. Has happened in the past when he has a sinus infection TANG Mcguire [address] [place], [address], PA - [facility] 05/07/2024 16:54:33 4 text/html Verified [...] TANG Mcguire [address] [place], [address], PA - [facility] 08/29/2024 10:53:19
--- OUTSIDE RECORDS SUMMARY | 2024-11-04 15:21 | XMS_ITS | Encounter Summary ---
Author Organization [facility] Address [address] [place] [address] Care Team Providers Care Rn Security Name Role Phone Freddy Holland MD Primary Care Provider + [phone] Reason for Visit * Reason Onset Date Comments Results 10/13/2024 Encounter Details Date Type Department Care Team (Late st Contact Info) Description 10/13/2024 Telephone Gastroenterology - [address] [place] [phone] Lucia Logan MA Results Social History Tobacco [...] at Not on file Legal Sex Male 4:16 PM EST Gender Identity Not on file Sexual Orientation Not on file documented as of this encounter Progress Notes * Lucia Logan MA - 10/18/2024 2:14 PM EST Bx results below given to pt. * Lucia Logan MA - 10/13/2024 3:18 [...] on filedocumented in this encounter Care Teams Rn Security Relationship Specialty Start Date End Date Freddy Holland MD [address] [place] [address] PCP - General Internal Medicine 10/04/24 documented as of this encounter
--- OUTSIDE RECORDS SUMMARY | 2024-11-04 15:22 | XMS_ITS | Encounter Summary ---
Author Organization [facility] Address [address] [place] [address] Care Team Providers Care Floor Installation Mechanic Name Role Phone Freddy Holland MD Primary Care Provider + [phone] Encounter Details Date Type Department Care Team ([facility] st Contact Info) Description 10/04/2024 Telephone Gastroenterology - [address] [facility] [address] [place] [address] Janusz Pate MD [address] [facility] [address] [place] [address] Social History Tobacco Use Types Packs/Day Years [...] on filedocumented in this encounter Care Teams Floor Installation Mechanic Relationship Specialty Start Date End Date Freddy Holland MD [address] [place] [address] PCP - General Internal Medicine 10/04/24 documented as of this encounter
--- OUTSIDE RECORDS SUMMARY | 2024-11-04 15:22 | XMS_ITS | Clinical Summary ---
Author Organization [facility] Address [address] [place] [address] Phone Care Team Providers Care Correctional Therapy Director Name Role Phone Freddy Holland MD Primary Care Provider [phone] Allergies No known active allergies Medications allopurinoL (ZYLOPRIM) 100 mg tablet Take 2 [...] Team Description 10/13/2024 Telephone Gastroenterology - [address] [facility] [address] [place] [address] Lucia Logan MA Results 10/07/2024 12:57 PM EST Anesthesia Event [facility] [address] [place] [phone] Cj Krause DO 10/07/2024 11:17 AM EST - 10/07/2024 11:59 PM EST Hospital Encounter [facility] [address] [place] [phone] Janusz Pate MD Steele, Matthew G, CRNA Colon cancer screening Discharge Disposition: Home or Self Care 10/04/2024 Telephone Gastroenterology - [address] [facility] [address] [address] Janusz Pate MD 09/20/2024 Telephone Gastroenterology - [address] [address] Janusz Pate MD 08/30/2024 Telephone Gastroenterology - [address] [address] Jose Armando Brink MA 08/25/2024 Telephone Gastroenterology - [address] [address] Jose Armando Brink MA 08/23/2024 Telephone Gastroenterology - [address] [place] [address] Jose Armadno Brink MA from Last 3 Months Surgical History Surgery Date Site/Laterality Comments CHOLECYSTECTOMY PROCEDURE: HISTORICAL CHOLECYSTECTOMY OTHER SURGICAL HISTORY PROCEDURE: ESOPHAGEAL MASS BIOPSY [facility] PATHOLOGY EXAM OTHER SURGICAL HISTORY PROCEDURE: HISTORY OTHER; COMMENT: Surgical intervention for scoliosis Medical History Medical History Date Comments DVT (deep venous thrombosis) (CMS/HCC) DX:DVT (deep venous thrombosis) ([facility]) Obesity DX:Obesity Anxiety and depression DX:Anxiet y and depression HARLEEN (obstructive sleep apnea) DX :HARLEEN (obstructive sleep apnea) Restrictive lung disease DX:Rest rictive lung disease [place] (hard of hearing) DX:[place] ([address] of hearing) Hearing loss Gout Depression Hypertension Pulmonary emboli (CMS/HCC) Family History Relation Name Status Comments Maternal [...] on file Sexual Orientation Not on file Obstetrics History Last Filed [...] patient's age to complete this topic Meningococcal B Vacine Aged Out No lo nger eligible based on patient's age to complete [...] this topic Medical Devices Implanted Type Area Tiler'S Assistant Device Identifier Shelf Expiration Date Model / Serial / Lot Implants Implants Bilateral: Spine Lumbar Procedures Procedure Name Priority Date/Time Associated Diagnosis Comments COLONOSCOPY Routine 10/07/2024 1:11 PM EST Colon cancer screening TISSUE EXAM Routine 10/07/2024 1:09 PM EST Colon cancer screening from Last 3 Months Results * COLONOSCOPY Anesthesia - MAC; [facility] END[facility]COPY (10/07/2024 1:11 PM EST) [...] for surveillance. Narrative 10/07/2024 1:[address] [facility] Patient Name: Richard Darden Procedure [...] Procedure Code(s): ? --- Professional --- ? 27555, Colonoscopy, flexible; with removal of ? tumor(s), polyp(s), or other lesion(s) by snare ? technique Diagnosis Code(s): ? --- Professional --- ? Z83.71, Family history of colonic polyps ? Z80.0, Family history of malignant neoplasm of ? digestive organs ? D12.8, Benign neoplasm of rectum CPT copyright 2020 [employer]. All rights reserved. The codes documented in this report are preliminary and upon cardroom manager review may be revised to meet current compliance requirements. Janusz Pate MD 10/07/2024 1:15:05 PM This report has been signed electronically.Janusz Pate MD Number of Addenda: 0 Note Initiated On: 10/07/2024 12:51 PM Scope In: Scope Out: ? Endoscopy Department at [facility] - [address] [place] [address], ? [place] [address] Procedure Note Janusz Pate MD - 10/07/2024 [facility] Patient Name: Richard Darden Procedure [...] retroflexion views. Procedure Code(s): --- Professional --- 55392, Colonoscopy, flexible; with removal of tumor(s), polyp(s), or other lesion(s) by snare technique Diagnosis Code(s): --- Professional --- Z83.71, Family history of colonic polyps Z80.0, Family history of malignant neoplasm of digestive organs D12.8, Benign neoplasm of rectum CPT copyright 2020 [employer]. All rights reserved. The codes documented in this report are preliminary and upon cardroom manager reviewmay be revised to meet current compliance requirements. Janusz Pate MD 10/07/2024 1:15:05 PM This report has been signed electronically.Janusz Pate MD Number of Addenda: 0 Note Initiated On: 10/07/2024 12:51 PM Scope In: Scope Out: Endoscopy Department at [facility] - [address] [place] [address] IMPRESSION: - One 7 mm polyp in the mid rectum, removed with a cold snare. Resected and retrieved. - The examination was otherwise normal on directand retroflexion views. Recommendation: - Await pathology results. - Repeat colonoscopy in 3 years for surveillance. us Janusz Pate MD GI~PROCEDURE ORDERABLES Fin al Result * Tissue exam (10/07/2024 1:09 PM EST) Final Diagnosis A. Large Intestine, Rectum, polyp x1: - Hyperplastic polyp. 10/08/2024 10:32 AM EST [facility] Gross Description A. Large Intestine, Rectum, polyp x1: Labeled LI rectum polyp x 1 . Received in formalin are two irregular pulliam mucosal tissue fragments, each measuring approximately 0.3 cm in greatest dimension, which are wrapped in paper and submitted in toto one cassette, two pieces, multiple levels on one slide. CHARLY 10/08/2024 10:32 AM EST [facility] Disclaimer Unless otherwise specified, all tissue is 10% NB formalin fixed and paraffin embedded. 10/08/2024 10:32 AM [facility] Tissue Rectum structure / Unknown 10/07/2024 1:09 PM EST 10/07/2024 3:27 PM EST us Janusz Pate MD LAB PATHOLOGY ORDERABLES Fi nal Result [facility] [address] [place] [address], from Last 3 Months Insurance [employer] Care Teams Correctional Therapy Director Relationship Specialty Start Date End Date Freddy Holland MD [address] [place] [address] PCP - General Internal Medicine 10/04/24
--- OUTSIDE RECORDS SUMMARY | 2024-11-04 15:22 | XMS_ITS | Data Portability ---
Author Hub Preferred Language en Marital Status Never Mandaeism Affiliation Unknown Race Unknown Additional Race(s) Other Race Ethnic Group Not or Lati no Author Organization [place] [facility], [facility] Office Address [address] [facility] [place] [address] Care Team Providers Care Bone Plant Supervisor Name Role Phone BI HOOD Primary Care Provider [phone] NICOLE ANGUIANO [employer] Media Specialist Assessment Encounter Date Assessment Date Assessment LastModified [...] tionPr ocesso r.aspx ?CMD=O PENSTU DY&ACC ESSION =[id number], [address], 05/23/2022 08:33:14 05/22/20 22 05/22/2022 XR, lower extre mity http:/ [email or web address]/I ntegra tionPr ocesso r.aspx ?CMD=O PENSTU DY&ACC ESSION =[id number], [address], 05/23/2022 08:33:15 Result Notes None recorded. Procedures Surgical History Date Name Laterality Status Provider Name and Address Organization Details Recorded Time 04/08/19 93 Orthopaedic Surgery completed Kathie [facility] 05/22/2022 13:51:57 cholecystectomy completed Kathie [facility] 05/22/2022 13:52:04 Imaging Results Imaging Date Name Status LastModified by Organiz ation Details LastModified Time 12/14/2021 MRI, knee, w/o contrast completed Information not available 05/21/2022 11:25:50 05/22/2022 XR, knee completed [address], [address], 05/23/2022 08:33:14 05/22/2022 XR, lower extremity completed [address] [place], [address], 05/23/2022 08:33:15 Procedure Notes None recorded. Medical [...] Address Organization Details Last Updated DateTime 05/22/2022 690528.59 g 42.7 kg/m2 190.5 cm Kathie Orellana [facility] 05/22/2022 13:49:46 Social History Question Answer Notes LastModified by [employer] ion Details LastModified Time Tobacco Smoking Status Never Smoker Kathie cheung [facility] 05/22/2022 13:50:04 What Is Your Level Of Alcohol Consumption? None Information not available 05/22/2022 What Is Your Level Of Caffeine Consumption? Occasional Information not available 05/22/2022 Are You Currently Employed? Yes Information not available 05/22/2022 Do You Or Have You Ever Used E-cigarettes Or Vape? 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 Information not available 05/22/2022 Have You Had [...] Issues N Reaction to General/Local Anesthesia N Weight Gain / Loss N Hepatitis / Jaundice N Kidney / Bladder Infections N Diabetes N Bleeding Disorder N Hearing Loss Y Angina, Heart Failure or Attack N Night Sweats N Seizures / Epilepsy N Osteoarthritis / Rheumatoid arthritis / Other N Cancer N Stroke N Chemical Dependency / Alcoholism N Ulcer / Stomach Bleeding / Indigestion N Visual Loss or Glaucoma N Thyroid Disorder N Psoriasis / Skin Rash N Heart Disease N Pulmonary Embolism N Asthma / Shortness of Breath / Sleep Bathing Suit Maker ea (please specify) N Past Encounters Encounter ID Performer Location Encounter Start Date Encounter Closed Date Diagnosis/Indication Diagnosis SNOMED-CT Code Diagnosis ICD10 Code Diagnosis Note [id number] ERIN ESPINOZA MD [address] [address] 05/22/2022 12:22:00 05/22/2022 15:01:45 Chondromalacia of right patella [id number] 2674392 M22.41 Health Concerns Section Related Observation LastModified by Organization Detai ls LastModified Time None Recorded Concern Status LastModified by Organization Details LastModified Time None Recorded Advance Directives Directive None Recorded Payers Encounter Date Sequence Insurance Name Policy Number Policy Chavis Covered Member ID Chavis Member ID Guarantor Name 05/22/2022 [facility] Children' s Study Home Richard Darden Notes Date Note Type Note Provider Name and Address Organization Details Recorded Time 05/22/2022 text/html Patient is a pleasant male presents in today with his watch case polisher for evaluation of bilateral knees. 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 He presents in [...] currently on anticoagulant therapy. ERIN ESPINOZA MD [address] [place] [address], [phone], [facility] - [facility] 06/20/2022 11:11:41
--- OUTSIDE RECORDS SUMMARY | 2024-11-04 15:22 | XMS_ITS | Encounter Summary ---
Author Organization [facility] [place] [address] Care Team Providers Care Geotechnical Operating Engineer Name Role Phone Freddy Holland MD Primary Care Provider + [phone] Reason for Referral * Hospital - Outpatient (Routine) - Closed Specialty Diagnoses / Procedures Referred By José Manuel jackson Referred To Contact Gastroenterology Diagnoses Colon cancer screening Procedures COLONOSCOPY Anesthesia - MAC; [facility] ENDOSCOPY Janusz Pate MD [address] [address] Phone: tel: fax: [facility] Endoscopy [address] [place] [address] Phone: tel: Referral ID Status Reason Start Date Expiration Date Visits Re quested Visits Authorized [id number] Closed 10/07/2024 12/06/2024 1 1 Reason for Visit * Auth/Cert (Routine) Specialty Diagnoses / Procedures Referred By José Manuel jackson Referred To Contact Diagnoses Encounter for screening for malignant neoplasm of colon Procedures COLONOSCOPY [facility] [id number] [place] [address] [facility] [address] [place] [address] Phone: tel: Referral ID Status Reason Start Date Expiration Date Visits Re quested Visits Authorized [id number] 1 1 Encounter Details Date Type Department Care Team (Latest Contact Info) Description 10/07/2024 11:17 AM EST - 10/07/2024 11:59 PM EST Hospital Encounter [facility] Endoscopy [address] [place] [address] Janusz Pate MD 229 [facility] [address] [place] [address] Parrish Morris, JESÚS [address] [facility] [address] [place] [address] Colon cancer screening Discharge Disposition: Home or [...] sent through Care Everywhere. * Colon Polyps (Tamazight) documented in this encounter Medications at Time of Discharge allopurinoL (ZYLOPRIM) 100 mg tablet Take 2 [...] (deep venous thrombosis) ([facility]/HCC) DX:DVT (deep venous thrombosis) (HCC) [place] of hearing[place] DX:[place]hard of hearing) Obesity DX:Obesity HARLEEN (obstructive [...] (one) time each day. Yes Historical Provider, amLODIPine (NORVASC) 10 mg tablet [...] encounter Results * COLONOSCOPY Anesthesia - MAC; [facility] ENDOSCOPY (10/07/2024 1:11 PM EST) Anatomical [...] for surveillance. Narrative 10/07/2024 1:15 PM EST [facility] GI Patient Name: Richard Darden Procedure [...] Procedure Code(s): ? --- Professional --- ? 41524, Colonoscopy, flexible; with removal of ? tumor(s), polyp(s), or other lesion(s) by snare ? technique Diagnosis Code(s): ? --- Professional --- ? Z83.71, Family history of colonic polyps ? Z80.0, Family history of malignant neoplasm of ? digestive organs ? D12.8, Benign neoplasm of rectum CPT copyright 2020 [employer]. All rights reserved. The codes documented in this report are preliminary and upon wall cleaner review may be revised to meet current compliance requirements. Janusz Pate MD 10/07/2024 1:15:05 PM This report has been signed electronically.Janusz Pate MD Number of Addenda: 0 Note Initiated On: 10/07/2024 12:51 PM Scope In: Scope Out: ? Endoscopy Department at [facility] - [address] [place] [address], ? [place] [address] Procedure Note Janusz Ptae MD - 10/07/2024 [facility] GI Patient Name: Richard Darden Procedure [...] retroflexion views. Procedure Code(s): --- Professional --- 42488, Colonoscopy, flexible; with removal of tumor(s), polyp(s), or other lesion(s) by snare technique Diagnosis Code(s): --- Professional --- Z83.71, Family history of colonic polyps Z80.0, Family history of malignant neoplasm of digestive organs D12.8, Benign neoplasm of rectum CPT copyright 2020 [employer]. All rights reserved. The codes documented in this report are preliminary and upon wall cleaner reviewmay be revised to meet current compliance requirements. Janusz Pate MD 10/07/2024 1:15:05 PM This report has been signed electronically.Janusz Pate MD Number of Addenda: 0 Note Initiated On: 10/07/2024 12:51 PM Scope In: Scope Out: Endoscopy Department at [facility] - [address] [place] [phone] IMPRESSION: - One 7 mm polyp in the mid rectum, removed with a cold snare. Resected and retrieved. - The examination was otherwise normal on directand retroflexion views. Recommendation: - Await pathology results. - Repeat colonoscopy in 3 years for surveillance. Janusz Pate MD GI~PROCEDURE ORDERABLES Fin al Result * Tissue exam (10/07/2024 1:09 PM EST) Final Diagnosis A. Large Intestine, Rectum, polyp x1: - Hyperplastic polyp. 10/08/2024 10:32 AM EST [facility] Gross Description A. Large Intestine, Rectum, polyp x1: Labeled LI rectum polyp x 1 . Received in formalin are two irregular pulliam mucosal tissue fragments, each measuring approximately 0.3 cm in greatest dimension, which are wrapped in paper and submitted in toto one cassette, two pieces, multiple levels on one slide. CHARLY 10/08/2024 10:32 AM [facility] Disclaimer Unless otherwise specified, all tissue is 10% NB formalin fixed and paraffin embedded. 10/08/2024 10:32 AM [facility] Tissue Rectum structure / Unknown 10/07/2024 1:09 PM EST 10/07/2024 3:27 PM EST Janusz Pate MD LAB PATHOLOGY ORDERABLES Fi nal Result [facility] [address] [place] [address], documented in this encounter Visit Diagnoses Diagnosis Colon cancer screening Special screening for malignant neoplasms, colon documented in this encounter Historical Medications * This list may reflect changes made after this encounter. zolpidem (AMBIEN) 10 mg tablet Take 1 [...] 10/07/2024 documented in this encounter Care Teams Geotechnical Operating Engineer Relationship Specialty Start Date End Date Freddy Holland MD [address] [place] [address] PCP - General Internal Medicine 10/04/24 documented as of this encounter
--- OUTSIDE RECORDS SUMMARY | 2024-11-04 15:22 | XMS_ITS | Encounter Summary ---
Author Organization [facility] [place] [address] Care Team Providers Care Aoc Airspace Control Officer Name Role Phone Freddy Holland MD Primary Care Provider [phone] Reason for Visit * Auth/Cert (Routine) Specialty Diagnoses / Procedures Referred By José Manuel jackson Referred To Contact Diagnoses Encounter for screening for malignant neoplasm of colon Procedures COLONOSCOPY [place] [address] [facility] Endoscopy [address] [place] [address] Phone: tel: Referral ID Status Reason Start Date Expiration Date Visits Re quested Visits Authorized [id number] 1 1 Encounter Details Date Type Department Care Team (Late st Contact Info) Description 10/07/2024 12:57 PM EST Anesthesia Event [facility] Endoscopy [address] [place] [address] Cj Krause DO [address] [place] [id number] Anesthesia Record Procedure Summary Procedure Name Responsible [...] transport to designated recovery area. {Transport to PACU/ICU:[id number]} 1311 Out of Room 1312 Handoff to [...] Procedure Summary Date: 10/07/24 Room / Location: [facility] Endoscopy Anesthesia Start: 1257 Anesthesia [...] DX:Anxiety and depression DVT (deep venous thrombosis) ([facility]) DX:DVT (deep venous thrombosis) ([facility]) [place] (hard of hearing) DX:[place] (hard of hearing) Obesity DX:Obesity [place] (obstructive sleep apnea) DX:[place] (obstructive sleep apnea) [...] mg documented in this encounter Care Teams Aoc Airspace Control Officer Relationship Specialty Start Date End Date Freddy Holland MD [address] [place] [address] PCP - General Internal Medicine 10/04/24 documented as of this encounter
--- OUTSIDE RECORDS SUMMARY | 2024-11-04 15:22 | XMS_ITS | Clinical Summary ---
Author Organization [facility] Address [address] [id number] Care Team Providers Care Cycling Instructor Name Role Phone Freddy Holland MD Primary Care Provider + [phone] Allergies No known active allergies Medications Medication [...] Group Subscriber ID Effective Dates Phone Address [facility] [id number] [facility] [address] [place] [address] HMO Care Teams Cycling Instructor Relationship Specialty Start Date End Date Freddy Holland MD PCP - General Internal Medicine 11/3/17
== END 2024-11-04 12:56 | disposition home or self-care (01) ==
LOC: HO.HAP 12:55
PROVIDERS: Visit Provider Internal Medicine
DX: Z13.89 Encounter for screening for other disorder (principal)

== ENCOUNTER 2024-12-23 14:20 | Outpatient (REF) | payer SELFPAY ==
--- OUTSIDE RECORDS SUMMARY | 2024-12-23 17:20 | XMS_ITS | Clinical Summary ---
Author Organization [facility] Address [address] [phone] Care Team Providers Care Director Data Processing Name Role Phone Freddy Holland MD Primary Care Provider + [phone] Allergies No known active allergies Medications Medication [...] Group Subscriber ID Effective Dates Phone Address [facility] [id number] [facility] [address] [place] [address] HMO Care Teams Director Data Processing Relationship Specialty Start Date End Date Freddy Holland MD PCP - General Internal Medicine 11/3/17
--- OUTSIDE RECORDS SUMMARY | 2024-12-23 17:20 | XMS_ITS ---
Author Name [facility] Organization Unknown Encounters Encounter Type Encounter Reason Primary Diagnosis Location Date Ambulatory [facility], [facility]. ([facility]) 08/29/2024
--- OUTSIDE RECORDS SUMMARY | 2024-12-23 17:20 | XMS_ITS | Clinical Summary ---
Author Organization [facility] Address [address] [place] [address] Phone Care Team Providers Care Vice Provost Name Role Phone Freddy Holland MD Primary Care Provider [phone] Allergies No known active allergies Medications allopurinoL [...] 10/13/2024 Telephone Gastroenterology - [address] [facility] [address] [place] [address] Lucia Logan [place] Results 10/07/2024 12:57 PM EST Anesthesia Event [facility] Endoscopy [address] [place] [phone] Cj Krause DO 10/07/2024 11:17 AM EST - 10/07/2024 11:59 PM EST Hospital Encounter [facility] [address] [place] [address] Janusz Pate MD Steele, Matthew G, CRNA Colon cancer screening Discharge Disposition: Home or Self Care 10/04/2024 Telephone Gastroenterology - [address] [facility] [address] [place] [phone] Janusz Pate MD from Last 3 Months Surgical History Surgery Date Site/Laterality Comments CHOLECYSTECTOMY PROCEDURE: HISTORICAL CHOLECYSTECTOMY OTHER SURGICAL HISTORY PROCEDURE: ESOPHAGEAL MASS BIOPSY [facility] PATHOLOGY EXAM OTHER SURGICAL HISTORY PROCEDURE: HISTORY OTHER; COMMENT: Surgical intervention for scoliosis Medical History Medical History Date Comments DVT (deep venous thrombosis) ([facility] V24, [facility] V28) DX:DVT (deep venous thrombos is) ([facility]) Obesity DX:Obesity Anxiety and depression DX:Anxiet y and depression HARLEEN (obstructive sleep apnea) DX :[place] (obstructive sleep apnea) Restrictive lung disease DX:Rest rictive lung disease [place] (hard of hearing) DX:[place] ([address] of hearing) Hearing loss Gout Depression Hypertension Pulmonary emboli ([facility] V2 4, [facility] V28) Family History Relation Name Status Comments Maternal [...] age to complete this topic Meningococcal B Vaccine Aged Out No l onger eligible based on patient's age to complete [...] this topic Medical Devices Implanted Type Area Civil Preparedness Coordinator Device Identifier Shelf Expiration Date Model / Serial / Lot Implants Implants Bilateral: Spine Lumbar Procedures Procedure Name Priority Date/Time Associated Diagnosis Comments COLONOSCOPY Routine 10/07/2024 1:11 PM EST Colon cancer screening TISSUE EXAM Routine 10/07/2024 1:09 PM EST Colon cancer screening from Last 3 Months Results * COLONOSCOPY Anesthesia - MAC; [facility] END[facility]COPY (10/07/2024 1:11 PM EST) Anatomical Region [...] for surveillance. Narrative 10/07/2024 1:15 PM EST [facility] Patient Name: Richard Darden Procedure [...] Procedure Code(s): ? --- Professional --- ? 28787, Colonoscopy, flexible; with removal of ? tumor(s), polyp(s), or other lesion(s) by snare ? technique Diagnosis Code(s): ? --- Professional --- ? Z83.71, Family history of colonic polyps ? Z80.0, Family history of malignant neoplasm of ? digestive organs ? D12.8, Benign neoplasm of rectum CPT copyright 202 [employer]. All rights reserved. The codes documented in this report are preliminary and upon gate mortiser operator review may be revised to meet current compliance requirements. Janusz Pate MD 10/07/2024 1:15:05 PM This report has been signed electronically.Janusz Pate MD Number of Addenda: 0 Note Initiated On: 10/07/2024 12:51 PM Scope In: Scope Out: ? Endoscopy Department at [facility] - [address] [place] [address], ? [place] [address] Procedure Note Janusz Pate MD - 10/07/2024 [facility] Patient Name: Richard Darden Procedure [...] retroflexion views. Procedure Code(s): --- Professional --- 62670, Colonoscopy, flexible; with removal of tumor(s), polyp(s), or other lesion(s) by snare technique Diagnosis Code(s): --- Professional --- Z83.71, Family history of colonic polyps Z80.0, Family history of malignant neoplasm of digestive organs D12.8, Benign neoplasm of rectum CPT copyright 2020 [employer]. All rights reserved. The codes documented in this report are preliminary and upon gate mortiser operator reviewmay be revised to meet current compliance requirements. Janusz Pate MD 10/07/2024 1:15:05 PM This report has been signed electronically.Janusz Pate MD Number of Addenda: 0 Note Initiated On: 10/07/2024 12:51 PM Scope In: Scope Out: Endoscopy Department at [facility] - [address] [place] [phone] IMPRESSION: - One 7 mm polyp in [...] x1: - Hyperplastic polyp. 10/08/2024 10:32 AM [facility] Gross Description A. Large Intestine, Rectum, polyp x1: Labeled LI rectum polyp x 1 . Received in formalin are two irregular pulliam mucosal tissue fragments, each measuring approximately 0.3 cm in greatest dimension, which are wrapped in paper and submitted in toto one cassette, two pieces, multiple levels on one slide. CHARLY 10/08/2024 10:32 AM [facility] Disclaimer Unless otherwise specified, all tissue is 10% NB formalin fixed and paraffin embedded. 10/08/2024 10:32 AM [facility] Tissue Rectum structure / Unknown 10/07/2024 1:09 PM EST 10/07/2024 3:27 PM EST us Janusz Pate MD LAB PATHOLOGY ORDERABLES Fi nal Result [facility] [address] [place] [address], from Last 3 Months Insurance [employer] Care Teams Vice Provost Relationship Specialty Start Date End Date Freddy Holland MD [address] [place] [address] PCP - General Internal Medicine 10/04/24
--- OUTSIDE RECORDS SUMMARY | 2024-12-23 17:20 | XMS_ITS | Data Portability ---
Author Organization TANG Jimenez [facility], [address] Address [address] [place] [address] Care Team Providers Care Building Contractor Name Role Phone RAINA NIEVES [employer] Assessment Encounter Date Assessment Date Assessment LastModified by Organization Details LastModified Time 08/29/2024 08/29/2024 Patient was evaluated by the Physician Blood Bank Order Control Clerk using AV technology. This type of exam [...] 3 or more view 2023 024 [facility], [address] [place] [address], [address], 4 18:10:31 Medication Orders amoxicillin 875 mg-potassiu m clavulanate 125 mg tablet 2023 024 [id number], [address] [place], [address], 4 10:33:59 clotrimazol e-betametha sone 1 %-0.05 % topical cream 2023 024 [id number], [address] [place], [address], 10:34:06 Patient TargetsNo targets recorded. Patient Instructions Encounter Date Encounter Id Patient Instructions Last Modified By Organization Details Last Modified Time 10/04/2023 [id number] hives: care instructions samm Not available 10/04/2023 16:47:26 - Daily cleansin g of intertriginous skin with a mild cleanser followed by drying of affected area with a music department chair on a cool setting - Aeration of affected area when feasible - Daily application of drying powders - Use of absorbent material or clothing, such as cotton or macedo wool, to separate skin in folds [facility] Not available 10/04/2023 16:47:42 01/14/2024 [id number] learning about rice (rest, ice, compression, and elevation) [email or web address] Not available 01/14/2024 17:16:41 Recommend rest, icing intermittently Physical Therapy and follow up with Podiatry. [email or web address] Not available 01/14/2024 17:46:17 05/07/2024 [id number] Acute Sinusitis: Care Instructions Not available 05/07/2024 16:53:15 08/29/2024 [id number] upper respirator y infection (cold): care instructions Not available 08/29/2024 10:50:54 Reason for Referral None Reported. Results Created Date Observation Date Name Description Value Unit Range Abnormal Flag Note LastModifiedBy Organization Detail LastModifiedTime 01/14/20 24 01/14/2024 XR, foot, 3 or more view No observ ation record ed. [email or web address] [facility] [address] [facility], [place], [address], 01/14/2024 19:27:55 Result Notes None recorded. Problems Name Problem SNOMED Code Status Onset Date Resolution Date Notes Provider Name and Address Organization Details Recorded Time Hypertensive disorder 33580069 Active Suellen cheung PA - [facility] 4 16:12:30 Diabetes mellitus 16346812 Active Suellen cheung PA - [facility] 4 16:12:38 Anxiety 67907189 Active Suellen cheung PA - [facility] 4 16:12:47 Problem Notes None recorded. Procedures Surgical History Date Name Laterality Status Provider Name and Address Organization Details Recorded Time 4 Virtual Visit completed Cinthia BECKWITH - [facility] 08/29/2024 10:32:31 Imaging Results Imaging Date Name Status LastModified by Liset ation Details LastModified Time 01/14/2024 XR, foot, 3 or more view completed [email or web address] [facility] [address] [facility] [place], [address], 01/14/2024 19:27:55 Procedure Notes None recorded. Medical [...] Updated DateTime 4 190.5 cm 38.7 kg/m2 694521. 63 g 98 % 98 % 78 [...] Updated DateTime 4 190.5 cm 39.4 kg/m2 123163. 6 g 99 % 99 % 84 [...] Last Updated DateTime 190.5 cm 39.4 kg/m2 890530. 6 g 3 98 % 98 % 105 /min 18 /min 98.7 [degF] 142 mm[Hg] 98 mm[Hg] Suellen Espinoza PA - [facility] 4 16:49:32 Date Recorded Body height Body mass index (BMI) Body weight Provider Name and Address Organization Details Last Updated DateTime 08/29/2024 190.5 cm 39.4 kg/m2 121247.6 g Cinthia Ale PA - [facility] 08/29/2024 10:33:52 Social History Question Answer Notes LastModified by Organizat ion Details LastModified Time Tobacco Smoking Status Never Smoker Suellen cheung PA - [facility] 10/04/2023 16:13:33 What Is Your Level Of Alcohol Consumption? None [email or web address] Information not available 10/04/2023 Are You Currently Employed? No Information not available 08/29/2024 Have You Had A Flu Shot This Season? Yes [email or web address] Information not available 10/04/2023 What Is Your Water Source? City Information not available 08/29/2024 What Is Your Heat Source? Electric Information not available 08/29/2024 Have You Had Direct Contact, Or Contact During Intimacy, With Monkeypox Rash, Scabs, Or Body Fluids From A Person With Monkeypox? No [email or web address] Information not available 01/14/2024 What Was The Date Of Your Most Recent Tobacco Screening? 05/07/2024 [email or web address] Information not available 05/07/2024 What Is Your Relationship Status? Information not available 08/29/2024 Are You Passively Exposed To Smoke? No Information no t available 08/29/2024 Do You Use Any Illicit Or Recreational Drugs? No Information not available 10/04/2023 Have You Recently Traveled Abroad? No [email or web address] Information not available 10/04/2023 Sex: Unknown Functional Status None recorded. Mental Status None recorded. Family History Nothing Reported. Medical History No medical history recorded. Past Encounters Encounter ID Performer Location Encounter Start Date Encounter Closed Date Diagnosis/Indication Diagnosis SNOMED-CT Code Diagnosis ICD10 Code Diagnosis Note [id number] [address] [facility], [place] [address] 07/17/2021 08:03:29 07/17/2021 09:03:28 [id number] [address] [facility], [place] [address] 10/25/2016 08:10:10 10/25/2016 09:09:58 [id number] [address] [facility] [place] [address] 11/04/2016 14:20:19 11/04/2016 15:47:57 [id number] [address] [facility], [place] [address] 11/13/2016 14:19:38 11/13/2016 16:09:06 [id number] [address] [facility], [place] [address] 12/29/2017 08:18:27 12/29/2017 09:25:12 [id number] [address] [facility], [place] [address] 12/23/2018 08:17:50 12/23/2018 08:56:59 [id number] [address] [facility], [place] [address] 11/29/2018 16:36:13 11/29/2018 17:14:28 [id number] [address] [facility] [place] [address] 06/30/2018 08:21:01 06/30/2018 10:27:37 [id number] Sha Tapia, EDU [address] [facility] [address] [facility] [place] [address] 10/04/2023 15:58:09 10/04/2023 16:49:55 Candidiasis of skin 33432468 B37.2 What are ringworm, athlete's foot, and [...] dry yourself well after swimming or showering. [id number] TANG SALAZAR [address] [facility] [address] [place] [address] 01/14/2024 17:01:01 01/14/2024 17:51:10 Pain in right foot 5943340115 54614 M79.671 Right Achi lles tendinitis 9599587245 37435 M76.61 Calcaneal spur 42513539 M77.31 [id number] TANG Mcguire [address] [facility] [address] [facility] [place] [address] 05/07/2024 16:40:23 05/07/2024 16:54:17 Acute sinusitis 29375599 J01.90 Based on your presentati on and [...] watery post nasal drip. 6. Steroid Nasal [place] like Flonase or Nasonex is recommende d. [...] notice immediate response. Thank you for using [employer] today, please feel free to contact our office if you have any questions or concerns. [id number] TANG Mcguire [address] [place] [address] 08/29/2024 10:31:10 08/29/2024 10:51:43 Upper respiratory infection 14588015 J06.9 Patient presented with symptoms of upper [...] pain or worsening. Thank you for using [employer] today, please feel free to contact our [...] Chavis Member ID Guarantor Name 07/17/2021 1 [id number] 5 Richard Husseint [id number] Richard Darden 10/04/2023 1 [id number] 5 Richard Adelso [id number] Richard Adelso 01/14/2024 1 [facility] 5 Richard Adelso [id number] Richard Adelso 05/07/2024 1 [facility] 5 Richard Adelso [id number] Richard Adelso 08/29/2024 1 [facility] 5 Richard Adelso [id number] Richard Darden Notes Date Note Type Note [...] Sha Tapia NP [address] [place], [address], PA - [facility] 10/04/2023 16:49:58 4 text/html Foot/Ankle UCReported bypatient.Notes:48 y.o male pt presents with intermittent rigth heel pain that started a few weeks ago. Pt denies any specific injury. He has a slight elevated area to his heel. He denies any recent trauma or injury. TANG SALAZAR [address] [place], [address], PA [facility] 01/14/2024 19:03:41 4 text/html 49 y/o male here with R sided facial pain for 3 days, now with upper teeth pain. Has happened in the past when he has a sinus infection TANG Mcguire [address] [place], [address], PA - [facility] 05/07/2024 16:54:33 4 [...] TANG Mcguire [address] [place], [address], PA - [facility] 08/29/2024 10:53:19
--- OUTSIDE RECORDS SUMMARY | 2024-12-23 17:20 | XMS_ITS | Data Portability ---
Author Organization [place] - [facility], [facility] Address [address] [place] [address] Care Team Providers Care Scanning Clerk Name Role Phone HOOD PAT Primary Care Provider NICOLE ANGUIANO Rn Orthopedic Assessment Encounter Date Assessment Date Assessment LastModified [...] tionPr ocesso r.aspx ?CMD=O PENSTU DY&ACC ESSION =[id number], [address], 05/23/2022 08:33:14 05/22/20 22 05/22/2022 XR, lower extre mity http:/ [email or web address] [email or web address]/I ntegra tionPr ocesso r.aspx ?CMD=O PENSTU DY&ACC ESSION =[id number], [address], 05/23/2022 08:33:15 Result Notes None recorded. Procedures Surgical History Date Name Laterality Status Provider Name and Address Organization Details Recorded Time 04/08/19 93 Orthopaedic Surgery completed [facility] 05/22/2022 13:51:57 cholecystectomy completed [facility] 05/22/2022 13:52:04 Imaging Results Imaging Date Name Status LastModified by Organiz ation Details LastModified Time 12/14/2021 MRI, knee, w/o contrast completed Information not available 05/21/2022 11:25:50 05/22/2022 XR, knee completed [address], [address], 05/23/2022 08:33:14 05/22/2022 XR, lower extremity completed [address], [address], 05/23/2022 08:33:15 Procedure Notes None recorded. Medical [...] Address Organization Details Last Updated DateTime 05/22/2022 612267.59 g 42.7 kg/m2 190.5 cm Kathie Orellana [facility] 05/22/2022 13:49:46 Social History Question Answer Notes LastModified by [employer] ion Details LastModified Time Tobacco Smoking Status [facility] 05/22/2022 13:50:04 What Is Your Level Of Alcohol Consumption? None Information not available 05/22/2022 What Is Your Level Of Caffeine Consumption? Occasional Information not available 05/22/2022 Are You Currently Employed? Yes Information not available 05/22/2022 Do You Or Have You Ever Used E-cigarettes Or Vape? 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 Information not available 05/22/2022 Have You Had [...] Condition Response Blood Clots / Phlebitis Y Heart Problems N HIV or AIDS N Depression or Anxiety Y High Blood Pressure Y Irregular Heartbeat N MRSA N Emphysema [...] Asthma / Shortness of Breath / Sleep Scientist ea (please specify) N Pulmonary Embolism N Past Encounters Encounter ID Performer Location Encounter Start Date Encounter Closed Date Diagnosis/Indication Diagnosis SNOMED-CT Code Diagnosis ICD10 Code Diagnosis Note [id number] ERIN ESPINOZA MD [facility] [address] Office [address] [place] [address] 05/22/2022 12:22:00 05/22/2022 15:01:45 Chondromalacia of right patella [id number] 7964490 M22.41 Health Concerns Section Related Observation LastModified by Organization Detai ls LastModified Time None Recorded Concern Status LastModified by Organization Details LastModified Time None Recorded Advance Directives Directive None Recorded Payers Encounter Date Sequence Insurance Name Policy Number Policy Chavis Covered Member ID Chavis Member ID Guarantor Name 05/22/2022 [facility] Richard Darden Notes Date Note Type Note Provider Name and Address Organization Details Recorded Time 05/22/2022 text/html Patient is a pleasant male presents in today with his rehabilitation case coordinator for evaluation of bilateral knees. 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 He presents in [...] currently on anticoagulant therapy. ERIN ESPINOZA MD [address] [place] [address], [address], [facility] - [facility] 06/20/2022 11:11:41
--- OUTSIDE RECORDS SUMMARY | 2024-12-23 17:20 | XMS_ITS | Clinical Summary ---
Author Organization [facility] Address [address] [place] [address] Phone Care Team Providers Care Cathode Maker Name Role Phone Freddy Holland MD Primary Care Provider + [phone] Allergies No known active allergies Medications lisinopril [...] Visit [facility] [address] [address] Jw Pearson MD [address] [phone] Health Maintenance Due Date Last Done Comments Hepatitis B Vaccine (1 of 3 - 19+ 3-dose series) 04/19 Pneumococcal Vaccine: Peds ( 0 to 5 Years) and At-Risk Patients (6 to 49 Years) (1 of 2 - PCV) 1996 Influenza Vaccine (Season Ended) 2025 Insurance [facility] Care Teams Cathode Maker Relationship Specialty Start Date End Date Freddy Holland MD [address] [place] [address] PCP - General Internal Medicine 06/18/23
== END 2024-12-23 14:21 | disposition home or self-care (01) ==
LOC: HO.HAP 14:20
PROVIDERS: Visit Provider Internal Medicine
DX: Z13.89 Encounter for screening for other disorder (principal)

== ENCOUNTER 2025-06-14 14:41 | Outpatient (REF) | payer SELFPAY ==
--- OUTSIDE RECORDS SUMMARY | 2025-02-21 09:53 | XMS_ITS ---
Author Organization [facility] Address [address] [place], [place] [phone] Care Team Providers Care Digital Account Manager Name Role Phone HOOD PAT Primary Care Provider REASON FOR VISIT [facility] Encounters Encounter Location Date Provider Diagnosis [facility] [address] [place] [address] 02/21/2025 HOOD PAT PLAN OF TREATMENT Next Appt Details Provider Name:HOOD PADILLA, 06/28/2025 10:15:00 AM, [address] [place], [address],
--- OUTSIDE RECORDS SUMMARY | 2025-02-24 11:25 | XMS_ITS ---
Author Organization [facility] Address [address] [place], [place] [phone] Care Team Providers Care In Home Aide Name Role Phone HOOD PAT Primary Care Provider REASON FOR VISIT [facility] referral. Encounters Encounter Location Date Provider Diagnosis [facility] [address] [place] [address] 02/24/2025 HOOD APT PLAN OF TREATMENT Next Appt Details Provider Name:HOOD PADILLA, 06/28/2025 10:15:00 AM, [address] [place], [address],
--- OUTSIDE RECORDS SUMMARY | 2025-02-28 12:11 | XMS_ITS ---
Author Organization [facility] Address [address] [place], [place] [phone] Care Team Providers Care Senior Web Engineer Name Role Phone HOOD PAT Primary Care Provider REASON FOR VISIT (W)Referral assistance needed Encounters Encounter Location Date Provider Diagnosis [facility] [address] [place] [address] 02/28/2025 HOOD PAT PLAN OF TREATMENT Next Appt Details Provider Name:HOOD PADILLA, 06/28/2025 10:15:00 AM, [address] [place], [address],
--- OUTSIDE RECORDS SUMMARY | 2025-03-18 10:23 | XMS_ITS ---
Author Organization [facility] Address [address] [place], [place] [phone] Care Team Providers Care Crushing Machine Operator Name Role Phone HOOD PAT Primary Care Provider REASON FOR VISIT forms and needs ov Encounters Encounter Location Date Provider Diagnosis [facility] [address] [place] [address] 03/18/2025 HOOD PAT PLAN OF TREATMENT Next Appt Details Provider Name:HOOD PADILLA, 06/28/2025 10:15:00 AM, [address] [place], [address],
--- OUTSIDE RECORDS SUMMARY | 2025-03-24 04:00 | XMS_ITS ---
Author Organization [facility] Address [address], [place] [id number] Care Team Providers Care Classification Control Clerk Name Role Phone HOOD PAT Primary Care Provider NANDINI QUIROZ Unavailable [phone] ALLERGIES Allergen (clinical drug ingredient) Drug/Non Drug Allergy documented on EMR Reaction Allergy Type Onset Date Status Penicillin stomach upset Drug Allergy In active REASON FOR REFERRAL Reason (FAXED 03/27/25) BMI of 43.74 with history of hypertension and diabetes and sleep apnea. Diagnosis 1 Obesity, Class III, BMI 40-49.9 (morbid obesity) (E66.813) Referral Organization [facility] sociates Referring Provider First Name NANDINI Referring Provider Last Name RICHIE Referring Provider Speciality Internal M edicine Referred Provider BELGICA YU Referred Provider Specialty Bariatric Dixon rgery General Notes Samanta SCOTT [place] 09:45:53 PM > Referral and ov note faxed Referral Priority Routine REASON FOR VISIT FMLA FORMS MEDICATIONS Medication SIG (Take, Route, Frequency, Duration) Notes Start Date End Date Status Mupirocin 2 % 1 application Externally Twice a day for 5 day(s) 03/25/2024 Active Metoprolol Succinate ER 25 MG TAKE 1 TAB LET BY MOUTH EVERY DAY Orally Once a day for 90 days Active Eliquis 2.5 MG TAKE 1 TABLET BY APRYL TH TWICE A DAY for 30 Active Lisinopril 40 MG 1 tablet Orally Once a day for 90 days Active Zoloft 100 MG 2 tablets Orally Onc e a day Active Vitamin D 25 MCG (1000 UT) 1 tablet Oral ly Once a day Active amLODIPine Besylate 5 MG 1 1/2 tablet Or ally Once a day 06/12/2023 Active Zolpidem Tartrate 10 MG 1 tablet at bedt yosi as needed Orally Once at night 09/03/2023 Active Allopurinol 100 MG TAKE 2 TABLETS BY MOUTH EVERY DAY for 90 Active Pantoprazole Sodium 40 MG TAKE 1 TABLET BY MOUTH EVERY DAY for 90 Active metFORMIN HCl 500 MG TAKE 1 TABLET BY MO UTH EVERY DAY for 90 Active hydroCHLOROthiazide 25 MG TAKE 1 TABLET BY MOUTH EVERY DAY for 90 Active SOCIAL HISTORY Tobacco Use: Social History Observation Description Date Details (start date - stop date) Never Smoker NA - NA Sex Assigned At : Social History Observation Description Sex Assigned At Unknown Smoking Question Answer Notes Are you a: never smoker PROBLEMS Problem Type ICD Code Onset Dates Problem Status W/U Status Risk SNOMED Code Notes Problem Obesity, Class III, BMI 40-49.9 (morbid obesity) (E66.813) Active confirmed 113094183 VITAL SIGNS Height 75 in 03/24/2025 Weight 350 lbs 03/24/2025 Blood pressure systolic 134 mm Hg 03/24/20 25 Blood pressure diastolic 84 mm Hg 025 BMI 43.74 kg/m2 03/24/2025 Encounters Encounter Location Date Provider Diagnosis [facility] [address] [place] [address] 03/24/2025 NANDINI QUIROZ Anxiety F41.9 ; Type 2 diabetes mellitus without complications E11.9 ; Essential (primary) hypertension I10 and Obesity, Class III, BMI 40-49.9 (morbid obesity) E66.813 ASSESSMENTS Encounter Date Diagnosis Assessment Notes Treatment Notes Treatment Clinical Notes Section Notes 03/24/2025 Anxiety (ICD-10 - F41.9) FMLA forms filled out. Patient will continue with [facility] as scheduled. He will also continue in the meantime on Zoloft 100 mg 2 tablets daily and zolpidem 10 mg at bedtime as needed. Currently stable. Follow-up with Dr. Pat as scheduled. 03/24/2025 Type 2 diabetes mellitus without complications (ICD-10 - E11.9) Patient advised to get lab work done as ordered by Dr. Pat. Will continue on metformin 500 mg daily and medication adjustment to be based on test result. Follow-up with Dr. Pat when scheduled. Turn sooner as needed. Discussed diet and exercise and weight loss. 03/24/2025 Essential (primary) hypertension (ICD-10 - I10) Blood pressure under good control. Continue metoprolol ER 25 mg daily, lisinopril 40 mg daily and amlodipine 5 mg 1-1/2 tablets daily and hydrochlorothiazide 25 mg daily. Follow-up with Dr. Pat as scheduled. Discussed diet and exercise and weight loss. 03/24/2025 Obesity, Class III, BMI 40-49.9 (morbid obesity) (ICD-10 - E66.813) Referral to weight management placed as requested. PLAN OF TREATMENT Treatment Notes Assessment Notes Anxiety FMLA forms filled ou t. Patient will continue with [facility] as scheduled. He will also continue in the meantime on Zoloft 100 mg 2 tablets daily and zolpidem 10 mg at bedtime as needed. Currently stable. Follow-up with Dr. Pat as scheduled. Type 2 diabetes mellitus wit hout complications Patient advised to get lab work done as ordered by Dr. Pat. Will continue on metformin 500 mg daily and medication adjustment to be based on test result. Follow-up with Dr. Pat when scheduled. Turn sooner as needed. Discussed diet and exercise and weight loss. Essential (primary) hypertension Blood p ressure under good control. Continue metoprolol ER 25 mg daily, lisinopril 40 mg daily and amlodipine 5 mg 1-1/2 tablets daily and hydrochlorothiazide 25 mg daily. Follow-up with Dr. Pat as scheduled. Discussed diet and exercise and weight loss. Obesity, Class III, BMI 40-4 9.9 (morbid obesity) Referral to weight management placed as requested. Referrals Referral Date Details (FAXED 03/27/25) BMI of 43.74 with history of hypertension and diabetes and sleep apnea., NIURKAO GIGI Next Appt Details Follow Up: Form filled out. Follow-up with Dr. Pat in May for follow-up on blood pressure and diabetes. Get lab work done as ordered by Dr. Pat. Continue current medications as prescribed. Return here sooner if needed., Reason: Provider Name:HOOD PADILLA, 06/28/2025 10:15:00 AM, [address] [place], [address], Progress Notes * Examination Category Sub-Category Detail Notes Category Not es General Examination HEENT: NC/AT, EOMI,PERRL Neck: supple, no lymphaden opathy, no carotid bruit, JVP flat Heart: RRR, no murmurs, cli cks or rubs, normal S1S2 Lungs: clear to auscultatio n Abdomen: soft, non tender/non distended Extremities: normal ROM, no clubb ing , cyanosis, or edema General Appearance no apparent distress , pleasant, obese Skin: normal, no rash Neuro alert and oriented x 3, CN 2-12 intact, motor 5/5 bilaterally proximally and distally in all 4 extremities, no focal abnormality, gait normal History and Physical Notes * HPI (History of Present Illness) Category Sub-Category Detail Notes Category Not es General Patient of Dr. Pat seen today for follow-up on behavioral health issues and need for FMLA forms to be filled out as well as follow-up on blood pressure medications and diabetes medications. Patient had to cancel his follow-up with Dr. Pat in August and had not rescheduled. Patient states he needs FMLA forms for intermittent leave so he can attend his doctors appointments for both therapy and for Dr. Pat as well as when he has issues with severe anxiety and panic attacks that require him to take a day off. Form was reviewed from previous forms and filled out appropriately and given to patient. Here in the office patient denies any acute complaints. He is asking about a referral for weight management which will be placed. He continues on amlodipine 5 mg 1-1/2 tablets a day and lisinopril 40 mg a day and hydrochlorothiazide 25 mg a day for his blood pressure. Blood pressure under good control today. He is on metformin 500 mg 1 tablet daily for his diabetes. He will get lab work that was ordered by Dr. Pat in the past but has yet to be done. He is on Eliquis 2.5 mg twice a day. For his anxiety issues he is on Zoloft 100 mg 2 tablets daily and for sleep with anxiety he has zolpidem 10 mg once a day. He had been seeing Dr. Saenz for psychiatry but in the process now of switching to [facility]. Here in the office he has no acute complaints. Consultation Request Notes Referral Date Referring Provider Referred Provider Not es 03/24/2025 NANDINI QUIROZ VIRIATO (FAXED ) BMI of 43.74 with history of hypertension and diabetes and sleep apnea.
--- OUTSIDE RECORDS SUMMARY | 2025-06-14 17:59 | XMS_ITS ---
Author Name [place] Organization Unknown Encounters Encounter Type Encounter Reason Primary Diagnosis Location Date Ambulatory [facility], [facility]. ([facility]) 08/29/2024
--- OUTSIDE RECORDS SUMMARY | 2025-06-14 17:59 | XMS_ITS | Clinical Summary ---
Author Organization [facility] Address [address] [place] [address] Phone Care Team Providers Care Truck Spotter Name Role Phone Freddy Holland MD Primary Care Provider Allergies No known active allergies Medications allopurinoL [...] at bedtime as needed. at bedtime Active Surgical History Surgery Date Site/Laterality Comments CHOLECYSTECTOMY PROCEDURE: HISTORICAL CHOLECYSTECTOMY OTHER SURGICAL HISTORY PROCEDURE: ESOPHAGEAL MASS BIOPSY SPCMN PATHOLOGY EXAM OTHER SURGICAL HISTORY PROCEDURE: HISTORY OTHER; COMMENT: Surgical intervention for scoliosis Medical History Medical History Date Comments DVT (deep venous thrombosis) ([facility] V24, [facility] V28) DX:DVT (deep venous thrombos is) ([facility]) Obesity DX:Obesity Anxiety and depression DX:Anxiet y and depression HARLEEN (obstructive sleep apnea) DX :HARLEEN (obstructive sleep apnea) Restrictive lung disease DX:Rest rictive lung disease TRIBE (hard of hearing) DX:TRIBE ([address] of hearing) Hearing loss Gout Depression Hypertension Pulmonary emboli (CMS/HCC V2 4, CMS/HCC V28) Family History Relation Name Status Comments Maternal Grandmother COLON C A Social History Tobacco Use Types Packs/Day Years Used Date Smoking Tobacco: Never Smokeless Tobacco: Never Tobacco Cessation:Counseling Given: Not Answered Alcohol Use Standard Drinks/Week Comments Not Currently 0 (1 standard drink = 0.6 oz pur e alcohol) Interpersonal Safety Answer Date Record ed Physical Abuse Unrecognized value 10/07/2024 Verbal Abuse Unrecognized value 10/07/2024 Sex and Gender Information Value Date Recorded Sex Assigned at Not on file Legal Sex Male 4:16 PM EST Gender Identity Not on file Sexual Orientation Not on file Obstetrics History Last Filed Vital Signs Vital Sign Reading Time Taken Comments Blood Pressure 127/89 10/07/2024 1:32 PM EST Pulse 94 10/07/2024 1:32 PM EST Temperature 35.9 C (96.7 F) 10/07/2024 12:49 PM EST Respiratory Rate 16 10/07/2024 1:32 PM EST [...] series) 1996 Cholesterol Screening (Lipid Panel) 08/16/2022 HIV Screening 08/16/2022 Hepatitis C Screening 08/16/2022 Social Influencers of Health Screening 08/16/2022 Hypertension/CHF/CAD Annual BMP Blood Test 08/18/2022 Depression Screening 09/08/2024 Influenza Vaccine (#1) 2025 4, 06/12/2023, 07/12/2022, Additional history exists DTaP,Tdap,and Td Vaccines (2 - Td or Tdap) 06/03/2034 06/03/2024 Colorectal Cancer Screening: Colonoscopy 10/07/2034 10/07/2024 RSV Immunization Adult Patients (1 - 1-dose 75+ series) 2052 COVID-19 Vaccine Completed 06/10/2024, 12/2021, 08/03/2021, Additional [...] and At-Risk Patients (6 to 49 Years) Aged Out No longer eligible based on patient's age to complete this topic RSV Immunization Patients Under 20 months Aged Out No longer eligible based on patient's age to complete this topic Varicella Vaccines Aged Out No longer eligible based on patient's age to complete this topic Medical Devices Implanted Type Area Roll Inspector Device Identifier Shelf Expiration Date Model / Serial / Lot Implants Implants Bilateral: Spine Lumbar Procedures Procedure Name Priority Date/Time Associated Diagnosis Comments COLONOSCOPY Routine 10/07/2024 1:11 PM EST Colon cancer screening from Last 3 Months or Most Recently Relevant to Health Maintenance Results * COLONOSCOPY Anesthesia - MAC; [facility] ENDOSCOPY (10/07/2024 1:11 PM EST) Anatomical Region Laterality Modality Endoscopy 10/07/2024 12:5 1 PM EST Impressions 10/07/2024 1:15 PM EST - One 7 mm polyp in the mid rectum, removed with a cold snare. Resected and retrieved. - The examination was otherwise normal on direct and retroflexion views. Recommendation: - Await pathology results. - Repeat colonoscopy in 3 years for surveillance. Narrative 10/07/2024 1:15 PM EST [facility] GI Patient Name: Richard Darden Procedure Date: 10/07/2024 12:51 PM Date of : 1975 Age: 49 Room: ROOM 16 Gender: Male Note Status: Finalized Attending MD: Janusz Pate MD, Procedure Date No Time: 10/07/2024 Procedure: Colonoscopy Indications: Colon cancer screening in patient at increased risk: Family history of 1st-degree relative with colon polyps before age 60 years, Screening in patient at increased risk: Family history of 1st-degree relative with colorectal cancer before age 60 years Providers: Janusz Pate MD Referring MD: Janusz Pate MD Medicines: Propofol per Anesthesia Complications: No immediate complications. Estimated Blood Loss: Estimated blood loss: none. Procedure: Pre-Anesthesia Assessment: - ASA Grade Assessment: III - A patient with severe systemic disease. After I obtained informed consent, the scope was passed under direct vision. Throughout the procedure, the patient's blood pressure, pulse, and oxygen [...] polyp was removed with a cold snare. Resection and retrieval were complete. The exam was otherwise without abnormality on direct and retroflexion views. Procedure Code(s): --- Professional --- 96323, Colonoscopy, flexible; with removal of tumor(s), polyp(s), or other lesion(s) by snare technique Diagnosis Code(s): --- Professional --- Z83.71, Family history of colonic polyps Z80.0, Family history of malignant neoplasm of digestive organs D12.8, Benign neoplasm of rectum CPT copyright 2020 [employer]. All rights reserved. The codes documented in this report are preliminary and upon license issuer review may be revised to meet current compliance requirements. Janusz Pate MD 10/07/2024 1:15:05 PM This report has been signed electronically.Janusz Pate MD Number of Addenda: 0 Note Initiated On: 10/07/2024 12:51 PM Scope In: Scope Out: Endoscopy Department at [facility] - [address] [place] [phone] Procedure Note Janusz Pate MD - 10/07/2024 [facility] GI Patient Name: Richard Darden Procedure Date: [...] retroflexion views. Procedure Code(s): --- Professional --- 37687, Colonoscopy, flexible; with removal of tumor(s), polyp(s), or other lesion(s) by snare technique Diagnosis Code(s): --- Professional --- Z83.71, Family history of colonic polyps Z80.0, Family history of malignant neoplasm of digestive organs D12.8, Benign neoplasm of rectum CPT copyright 2020 [employer]. All rights reserved. The codes documented in this report are preliminary and upon license issuer reviewmay be revised to meet current compliance requirements. Janusz Pate MD 10/07/2024 1:15:05 PM This report has been signed electronically.Janusz Pate MD Number of Addenda: 0 Note Initiated On: 10/07/2024 12:51 PM Scope In: Scope Out: Endoscopy Department at [facility] - [address] [place] [phone] IMPRESSION: - One 7 mm polyp in the mid rectum, removed with a cold snare. Resected and retrieved. - The examination was otherwise normal on directand retroflexion views. Recommendation: - Await pathology results. - Repeat colonoscopy in 3 years for surveillance. Janusz Pate MD GI~PROCEDURE ORDERABLES Fin al Result from Last 3 Months or Most Recently Relevant to Health Maintenance Insurance [employer] Care Teams Truck Spotter Relationship Specialty Start Date End Date Freddy Holland MD [address] [place] [phone] PCP - General Internal Medicine 10/04/24
--- OUTSIDE RECORDS SUMMARY | 2025-06-14 17:59 | XMS_ITS | Patient Health Record ---
Author Organization [facility] Address [address], [place] [id number] Care Team Providers Care Calculator Operator Name Role Phone HOOD PAT Primary Care Provider [phone] NANDINI QUIROZ Unavailable [phone] EDER LARSON Unavailable [phone] ALLERGIES Allergen (clinical drug ingredient) Drug/Non Drug Allergy documented on EMR Reaction Allergy Type Onset Date Status Penicillin stomach upset Drug Allergy In active REASON FOR REFERRAL Reason [facility] insurance referral for behavioral health Referral Organization [facility] As tarun Referring Provider First Name HOOD Referring Provider Last Name BI Referring Provider Speciality Internal M edicine General Notes Binta SCOTT MA 025 03:32:35 PM > t needs a referral sent to [facility] in order to get medications for mental health medications, * Pt now has [employer] ID# [id number] Group# [id number], Rama SCOTT Referrals 03/04/2025 02:21:38 PM > see new referral created on 02/07/25 Referral Priority Routine Reason [facility] Behavioral Health Referral Organization [facility] As socijoey Referring Provider First Name HOOD Referring Provider Last Name BI Referring Provider Speciality Internal M edicine General Notes Binta SCOTT [place] 025 09:56:10 AM > Pt needs a referral sent to [facility] in order to get medications for mental health medications* Pt now has [facility] ID# [id number] Group# [id number]., . , Pt has been waiting 3 months for this, asking for this BERNARD.TYLER Liz C MA 02/07/2025 09:57:05 AM > sent to above faxed number Referral Priority Routine Reason [facility] Referral Organization [facility] As sociates Referring Provider First Name HOOD Referring Provider Last Name BI [facility] General Notes Binta SCOTT [place] 025 01:58:04 PM > Pt needs a referral sent to [facility] w/ dx in order to get medications for mental health medications* Pt now has [facility] ID# [id number] Group# [id number]., . , Pt has been waiting 3 months for this, asking for this BERNARD., Naila SCOTT P Admin 03/04/2025 08:28:41 AM > Behavioral Health Adult Outpatient received referral but it needs to be for psychiatry and neuro psych. Patient would like our office to call their office to confirm what is needed. , Behavioral Health phone number is [phone], Binta SCOTT MA 03/04/2025 08:47:06 AM > office notes were sent Referral Priority Routine Reason (CALL OFFICE) Referr al to [facility] for anxiety and depression and evaluation and medication management Diagnosis 1 Anxiety disorder, un specified (F41.9) Referral Organization [facility] As tarun Referring Provider First Name HOOD Referring Provider Last Name BI [facility] General Notes Referral to [facility] for anxiety and depression and evaluation and medication management, Naila SCOTT Admin 02/24/2025 04:02:45 PM > faxed medical referral telephone encounter to [facility] at [phone] Clinical Notes Samanta SCOTT MA 03/2025 10:08:57 AM > no notes scanned. office number Referral Priority Routine Reason (FAXED 03/27/25) BMI of 43.74 with history of hypertension and diabetes and sleep apnea. Diagnosis 1 Obesity, Class III, BMI 40-49.9 (morbid obesity) (E66.813) Referral Organization [facility] As tarun Referring Provider First Name NANDINI Referring Provider Last Name RICHIE Referring Provider Speciality Internal edicine Referred Provider BELGICA YU Referred Provider Specialty Bariatric Dixon rgery General Notes Samanta SCOTT MA 09:45:53 PM > Referral and ov note faxed Referral Priority Routine MEDICATIONS Medication SIG (Take, Route, Frequency, Duration) Notes Start Date End Date Status Zoloft 100 MG 2 tablets Orally Onc e a day Active Vitamin D 25 MCG (1000 UT) 1 tablet Oral ly Once a day Active amLODIPine Besylate 5 MG 1 1/2 tablet Or ally Once a day 06/12/2023 Active Zolpidem Tartrate 10 MG 1 tablet at bedt yosi as needed Orally Once at night 09/03/2023 Active Mupirocin 2 % 1 application Externally Twice a day for 5 day(s) 03/25/2024 Active Allopurinol 100 MG TAKE 2 TABLETS BY MOUTH EVERY DAY for 90 Active Metoprolol Succinate ER 25 MG TAKE 1 TAB LET BY MOUTH EVERY DAY Orally Once a day for 90 days Active Pantoprazole Sodium 40 MG TAKE 1 TABLET BY MOUTH EVERY DAY for 90 Active Eliquis 2.5 MG TAKE 1 TABLET BY APRYL TH TWICE A DAY for 30 Active metFORMIN HCl 500 MG TAKE 1 TABLET BY MO UTH EVERY DAY for 90 Active Lisinopril 40 MG 1 tablet Orally Once a day for 90 days Active hydroCHLOROthiazide 25 MG TAKE 1 TABLET BY MOUTH EVERY DAY for 90 Active IMMUNIZATIONS Vaccine Route Administration Date Status Comme nts Influenza, Fluzone Quad IM Intramuscular 06/12/2023 Admini stered SOCIAL HISTORY Tobacco Use: Social History Observation Description Date Details (start date - stop date) Never Smoker NA - NA Sex Assigned At : Social History Observation Description Sex Assigned At Unknown Smoking Question Answer Notes Are you a: never smoker PROBLEMS Problem Type ICD Code Onset Dates Problem Status W/U Status Risk SNOMED Code Notes Problem GERD [Gastroesophage al reflux disease] (530.81) Active confirmed Gastroesophagea l reflux disease (disorder) (219071615) controlled with omeprazole 20mg QD, EGD normal in 2006 Problem Bloating (787.3) Active confirmed Flatulence, eructation and gas pain (620702721) [facility] (789.09) Active confirmed Abdominal pain (94325486) right sided, appears musculoskeletal in nature, benign exam Problem Nonalcoholic fatty liver (571.8) Active confirmed Chronic nonalcoholic liver disease (78278834) Problem Essential (primary) hypertension (I10) Active confirmed Essential hypertension (54984201) Problem Type 2 diabetes mellitus without complications (E11.9) Active confirmed Type II diabete s mellitus without complication (960444813) Problem Disorder of lipoprotein metabolism, unspecified (E78.9) Active confirmed Disorder of lipoprotein storage and metabolism (disorder) (731568214) Problem Obstructive sleep apnea (adult) (pediatric) (G47.33) Active confirmed Obstructive sle ep apnea syndrome (disorder) (48125202) Problem Irritable bowel syndrome with diarrhea (K58.0) Active confirmed 125797571 Problem Nonalcoholic steatohepatitis (GILLESPIE) (K75.81) Active confirmed GILLESPIE - Nonalcoholic steatohepatitis (717057461) Problem Gout, unspecified (M10.9) Active confirmed Gout (71973214) Problem Gastroesophagea l reflux disease without esophagitis (K21.9) Active confirmed 431699549 Problem Anxiety (F41.9) Active confirmed 588580 02 Problem Obesity, Class III, BMI 40-49.9 (morbid obesity) (E66.813) Active confirmed 888143471 VITAL SIGNS Blood pressure diastolic 84 mm Hg 03/24/2025 Height 75 in 03/24/2025 Blood pressure systolic 134 mm Hg 03/24/2025 Weight 350 lbs 03/24/2025 BMI 43.74 kg/m2 03/24/2025 Encounters Encounter Location Date Provider Diagnosis [address] [address] 06/23/2024 HOOD PAT [address] [address] 06/23/2024 HOOD PAT [address] [address] 06/24/2024 HOOD PAT [address] [address] 07/06/[address] [address] 07/06/2024 EDER ARCO Dental infection K04 .[address] [address] 09/19/2024 HOOD PAT [address] [address] 09/23/2024 HOOD PAT [address] [address] 09/23/2024 HOOD PAT Essential (primary) hypertension I10 ; Disorder of lipoprotein metabolism, unspecified E78.9 ; Gout, unspecified M10.9 ; Obstructive sleep apnea (adult) (pediatric) G47.33 ; Type 2 diabetes mellitus without complications E11.9 ; Gastro-esophageal reflux disease without esophagitis K21.9 and Nonalcoholic steatohepatitis (GILLESPIE) K75.81 [place] [id number] 01/17/2025 HOOD PAT [address] [place] [address] 01/26/2025 HOOD PAT [address], [facility] 02/16/2025 HOOD PAT [place] [id number] 02/16/2025 HOOD PAT Anxiety disorder, unspecified F41.9 and Depression, unspecified F32.A [address] [place] [address] 02/21/[address] [place] [address] 02/24/2025 HOOD PAT [address] [address] 02/28/[address] [address] 03/18/[address] [address] 03/24/2025 NANDINI QUIROZ Anxiety F41.9 ; Type 2 diabetes mellitus without complications E11.9 ; Essential (primary) hypertension I10 and Obesity, Class III, BMI 40-49.9 (morbid obesity) E66.813 ASSESSMENTS Encounter Date Diagnosis Assessment Notes Treatment Notes Treatment Clinical Notes Section Notes 03/24/2025 Anxiety (ICD-10 - F41.9) FMLA forms filled out. Patient will continue with [facility] as scheduled. He will also continue in [...] Discussed diet and exercise and weight loss. 02/16/2025 Depression, unspecified (ICD-10 - F32.A) 02/16/2025 Anxiety disorder, unspecified (ICD-10 - F41.9) 07/06/2024 Dental infection (ICD-10 - K04.7) 1. Right upper molar dental infection with accompanying right facial swelling. Will treat with Augmentin and encouraged follow-up with his dentist. He will let us know if he is not improving readily 09/23/2024 Disorder of lipoprotein metabolism, unspecified (ICD-10 - E78.9) 09/23/2024 Essential (primary) hypertension (ICD-10 - I10) 03/24/2025 Essential (primary) hypertension (ICD-10 - I10) Blood pressure under good control. Continue metoprolol ER 25 mg daily, lisinopril 40 mg daily and amlodipine 5 mg 1-1/2 tablets daily and hydrochlorothiazide 25 mg daily. Follow-up with Dr. Pat as scheduled. Discussed diet and exercise and weight loss. 09/23/2024 Gout, unspecified (ICD-10 - M10.9) 09/23/2024 Obstructive sleep apnea (adult) (pediatric) (ICD-10 - G47.33) 03/24/2025 Obesity, Class III, BMI 40-49.9 (morbid obesity) (ICD-10 - E66.813) Referral to weight management placed as requested. 09/23/2024 Type 2 diabetes mellitus without complications (ICD-10 - E11.9) 09/23/2024 Gastro-esophageal reflux disease without esophagitis (ICD-10 - K21.9) 09/23/2024 Nonalcoholic steatohepatitis (GILLESPIE) (ICD-10 - K75.81) PLAN OF TREATMENT Pending Test Test Name Order Date EKG 01/27/2024 EKG 09/23/2024 MRA Renal Scan with contrast 06/12/2023 24 hour ambulatory blood pressure monito r 07/21/2023 Future Test Test Name Order Date COMPLETE URINALYSIS 06/12/2023 Uric Acid-[id number] 01/24/2024 Vitamin [id number] 01/24/2024 Folate (Folic Acid), Serum-[id number] 2023 Prostate-Specific Ag (PSA)-[id number] 2023 Hepatic Function Panel [id number] 2023 Uric Acid-[id number] 09/19/2024 Hemoglobin [id number] 09/19/2024 CBC, Platelet, w/o Differential-[id number] 0 09/19/2024 Lipid Panel-[id number] 09/19/2024 Hepatic Function Panel [id number] 2024 BMP8+[id number] 09/19/2024 Next Appt Details Provider Name:HOOD PADILLA, 06/28/2025 10:15:00 AM, [address] [place] [address], [id number], Insurance Providers Payer Name Payer Address Payer Phone Subscriber Number Group Number Insured Name Patient Relationship to Insured Coverage Start Date Coverage End Date [employer] N GROUP [address] [place] [id number] EDER MOLINA Self - patient is the insured MEDICAL (GENERAL) HISTORY Medical History History ICD Code Hypertension depression / anxiety Esophageal reflux obesity US of abd 12/04/2006 - Cholelithiasis EGD 01/22/2007 - Nrml CT of abd & pelv 03/30/2014 - Hepatomega ly & hepatic steatosis Fatty liver Anxiety Vaccination status COVID 3 shots. Flu sh ot q. year. 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 Kidney stones; A Pattie 2022 CT abdomen pelvis 2022 negative except for a small left adrenal myelo lipoma Male erectile dysfunction September 2019 upper endoscopy negative Holter monitor November 2022 normal sinus r hythm Cardiac echo with EF 55-60 ; ascending aorta sl dilated @ 4cm; mild hypokinesis 04/29 Prediabetes; A1C 5.8 10/31 DVT Left lower leg DX in 11/ 21 on Eliquis until 02/27; 03/29 occlisive thrombosis right posterior tibial and peroneal vein: Chest Ct angigram showed PE in right lower lung; restarted on Eliquis Lipids: [id number] 10/31 PSA 1.1 10/31 COVID immun 11/08 TDAP 07/20 Spinal fusion 1992 Cholecystectomy 24 hr halter NSR 11/28 Haadad stress echo 05/27 no ischemia 05/[address] Dunne 10/30 Obesity Hard of hearing due to a congenital issu e [facility] urology consultation [facility] 2023 [facility] GI consultation November 2023 for first colonoscopy Urology consultation Dr. Marilyn Rosenbaum re ctal dysfunction, kidney stones Surgical History Surgery Date(Month/Year) cholecystectomy 2007 spinal fusion Hospitalization History Reason Date(Month/Year)
--- OUTSIDE RECORDS SUMMARY | 2025-06-14 17:59 | XMS_ITS | Clinical Summary ---
Author Organization [facility] Address [address] [address] Phone Care Team Providers Care Truck Farmer Name Role Phone Freddy Holland MD Primary Care Provider + [phone] Allergies No known active allergies Medications lisinopril [...] at night if needed for sleep Active Zoloft 25 MG tablet Take 25 mg by mouth 1 (one) time each day 4 Active amLODIPine (NORVASC) 10 MG tablet TAKE 1 TABLET BY MOUTH 1 TIME EACH DAY. 90 tablet 3 5 Active Active Problems Problem Noted Date Diagnosed Date Deep venous thrombosis 10/19/2023 Hypertension 10/19/2023 Adrenal adenoma <Unspecified side> 10/19/2023 Encounters Date Type Department Care Team Description 03/21/2025 Documentation Only [facility] [address] [facility] [address] [place] [address] Jw Pearson MD 03/18/2025 Orders Only [facility] [address] [facility] [address] [place] [address] Jw Pearson MD Hypertension; Deep venous thrombosis <Unspecified side> (HCC); Adrenal adenoma <Unspecified side> from Last 3 Months Family History Medical History Relation Comments Cancer [...] 03/18/2024 8:08 AM EDT Plan of Treatment Health Maintenance Due Date Last Done Comments Hepatitis B Vaccine (1 of 3 - 19+ 3-dose series) 04/19 Pneumococcal Vaccine: Peds ( 0 to 5 Years) and At-Risk Patients (6 to 49 Years) (1 of 2 - PCV) 1996 Influenza Vaccine (#1) 2025 Insurance Diversified Administration ([id number]) Care Teams Truck Farmer Relationship Specialty Start Date End Date Freddy Holland MD [address] [place] [address] PCP - General Internal Medicine 06/18/23
--- OUTSIDE RECORDS SUMMARY | 2025-06-14 17:59 | XMS_ITS | Clinical Summary ---
Author Organization [facility] Address [address] [id number] Care Team Providers Care Substation Mechanic Name Role Phone Freddy Holland MD Primary Care Provider + [phone] Allergies No known active allergies Medications Medication [...] 92 10/16/2021 11:44 AM EST Temperature 36.2 C (97.2 F) 10/16/2021 11:44 AM EST Respiratory Rate - - Oxygen [...] Cancer Screening (Colonoscopy) 2022 Influenza Vaccine (#1) 2025 Pneumococcal Vaccine Aged Out No long er eligible based on patient's age to complete this topic RSV Ped < 20 months Aged Out No longe r eligible based on patient's age to complete this topic Insurance Payer Benefit Plan / Group Subscriber ID Effective Dates Phone Address [facility] [id number] [place] [address] O Care Teams Substation Mechanic Relationship Specialty Start Date End Date Freddy Holland MD PCP - General Internal Medicine 07/11/17
== END 2025-06-14 14:42 | disposition home or self-care (01) ==
LOC: HO.HAP 14:41
PROVIDERS: Visit Provider Internal Medicine
DX: Z13.89 Encounter for screening for other disorder (principal)